=== PATIENT | female | born 1995 | race Hispanic/Latino ===

== ENCOUNTER 2018-09-15 03:35 | Emergency (ER) | payer OTHER ==
[2018-09-15] MEDS ORDERED: ONDANSETRON 4 MG/2 ML VIAL ONE (04:07)
[2018-09-15] MEDS ORDERED: MORPHINE 4 MG/ML SYR ONE (04:07)
[2018-09-15] MEDS ORDERED: NA CHLORIDE 0.9% 1,000 ML ONE (04:08)
[2018-09-15 04:09] LABS: Absolute Lymphocytes (CBC) 2.1 K/uL (0.7-4.9); Absolute Monocytes 0.5 K/uL (0.1-1.3); Absolute Neutrophil 5.5 K/uL (1.8-8.0); Basophils % 0.7 % (0-1.3); Hematocrit 34.2 % (36.0-45.0); Lymphocytes % 24.2 % (15.3-44.8); MCH 28.3 pg (27.0-35.0); MCV 84.7 fL (80-100); RBC Red Blood Cell Count 4.04 M/uL (3.86-4.86)
[2018-09-15 04:28] LABS: ALT/SGPT 34 U/L (12-78); AST/SGOT 22 U/L (15-37); Albumin 2.6 g/dL (3.4-5.0); Alkaline Phosphatase 181 U/L (45-117); BUN Blood Urea Nitrogen 11 mg/dL (7-18); Bicarbonate 23 mmol/L (21-32); Bilirubin Direct < 0.1 mg/dL (0-0.2); Bilirubin Total 0.2 mg/dL (0.2-1.0); Glucose Level 94 mg/dL (74-106); Lipase 134 U/L (73-393); Potassium 4.1 mmol/L (3.5-5.1); Protein, Total 6.8 g/dL (6.4-8.2); Sodium Level 139 mmol/L (136-145)
[2018-09-15 05:02] LABS: Urine Blood 3+ (NEG); Urine Glucose NEGATIVE (NEG); Urine Protein 2+ (NEG)
[2018-09-15 05:26] LABS: Urine Bacteria <20 /HPF (<20); Urine Culture Reflex Order REFLEXED; Urine RBC TNTC /HPF (NONE SEEN)
--- NOTE | 2018-09-15 06:35 | ER ---
Nurse's Notes [facility] Name: Rachel Headley Age: 23 yrs Sex: Female : 1995 Arrival Date: 09/15/2018 Time: 03:37 Bed 8 Private MD: Diagnosis: Abdominal pain. Urinary tract infection Presentation: 09/15 03:46 Presenting complaint: Patient states: she delivered a baby on Sunday and received an bb epidural but then required a blood patch then tonight at approx 0200 she started having sharp lower abdominal pain which has gotten worse is constant and she rates it at 9/10. Pt denies vomiting, diarrhea or urinary symptoms. Transition of care: patient was not received from another setting of care. Onset of symptoms was September 15, 2018. Risk Assessment: Do you want to hurt yourself or someone else? Patient reports no desire to harm self or others. Initial Sepsis Screen: Does the patient meet any 2 criteria? No. Patient's initial sepsis screen is negative. Does the patient have a suspected source of infection? No. Patient's initial sepsis screen is negative. Care prior to arrival: None. 03:46 Method Of Arrival: Ambulatory bb 03:46 Acuity: RAMIRO 2 bb 03:52 Note pt had normal vaginal delivery. 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 - Social history:: Smoking status: Patient/guardian denies using tobacco, Patient/guardian denies using alcohol, street drugs. - Ebola Screening: : No symptoms or risks identified at this time. Screenin:00 Abuse screen: Denies threats or abuse. Denies injuries from another. Nutritional rr5 screening: No deficits noted. Tuberculosis screening: No symptoms or risk factors identified. Fall Risk IV access (20 points). Total Culver Fall Scale indicates No Risk (0-24 pts). Assessment: 03:45 General: Appears in no apparent distress. uncomfortable, Behavior is calm, cooperative, rr5 crying. Pain: Complains of pain in right lower quadrant and left lower quadrant Pain does not radiate. Pain currently is 9 out of 10 on a pain scale. Quality of pain is described as stabbing, Pain began 2 hours ago. Is intermittent. Neuro: Level of Consciousness is awake, alert, obeys commands, Oriented to person, place, time, situation. Cardiovascular: Capillary refill < 3 seconds. Respiratory: Airway is patent. GI: Abdomen is round. : No signs and/or symptoms were reported regarding the genitourinary system. EENT: No signs and/or symptoms were reported regarding the EENT system. Derm: No signs and/or symptoms reported regarding the dermatologic system. Musculoskeletal: No signs and/or symptoms reported regarding the musculoskeletal system. 04:19 Reassessment: Patient states feeling better. Patient states symptoms have improved. rr5 Pain: Complains of pain in right lower quadrant and left lower quadrant Pain does not radiate. Pain currently is 2 out of 10 on a pain scale. Quality of pain is described as stabbing, Pain began 3 hours ago. Is intermittent. 04:30 Reassessment: Patient appears in no apparent distress at this time. Patient is alert, rr5 oriented x 3, equal unlabored respirations, skin warm/dry/pink. oral contrast consumed at 0430 test negative, CT staff rylan informed. Patient states feeling better. Patient states symptoms have improved. 05:56 Reassessment: Patient appears in no apparent distress at this time. Patient and/or rr5 family updated on plan of care and expected duration. Pain level reassessed. Patient is alert, oriented x 3, equal unlabored respirations, skin warm/dry/pink. Patient denies pain at this time. Patient states feeling better. Patient states symptoms have improved. Vital Signs: 03:51 BP 138 / 93; Pulse 64; Resp 18 S; Temp 98.1(O); Pulse Ox 97% on R/A; Weight 106.59 kg bb (R); Height 5 ft. 6 in. (167.64 cm) (R); Pain 9/10; 04:00 BP 125 / 69; Pulse 65; Resp 16; Pulse Ox 99% on R/A; rr5 04:52 BP 128 / 80; Pulse 55; Resp 16; Pulse Ox 99% on R/A; rr5 05:58 BP 140 / 85; Pulse 61; Resp 17; Pulse Ox 99% on R/A; rr5 06:48 BP 123 / 78; Pulse 60; Resp 16; Pulse Ox 99% on R/A; rr5 03:51 Body Mass Index 37.93 (106.59 kg, 167.64 cm) bb ED Course: 03:37 Patient arrived in ED. es 03:40 Clayton Shea MD is Attending Physician. pkl 03:48 Jagdish Isaacs, RN is Primary Nurse. rr5 03:50 Triage completed. bb 03:51 Arm band placed on Patient placed in an exam room, on a stretcher, on pulse oximetry. bb Family accompanied patient. 03:58 Inserted saline lock: 20 gauge in right antecubital area, using aseptic technique. rr5 ,using aseptic technique. inserted koby Jasso RN Blood collected. 04:00 Patient has correct armband on for positive identification. Bed in low position. Call rr5 light in reach. Side rails up X 1. 05:[address] via stretcher. kw1 05:[address] rr5 05:38 CT Abd/Pelvis - W/Contrast In Process Unspecified. EDMS 05:38 CT completed. Patient tolerated procedure well. Patient moved back from CT. kw1 05:49 Patient moved back from CT. rr5 06:44 No provider procedures requiring assistance completed. IV discontinued, No lp1 redness/swelling at site. Pressure dressing applied. Administered Medications: 04:05 Drug: Zofran 4 mg Route: IVP; Site: right antecubital; rr5 05:49 Follow up: Response: No adverse reaction rr5 04:09 Drug: NS 0.9% 1000 ml Route: IV; Rate: 1000 ml; Site: right antecubital; rr5 06:50 Follow up: Response: No adverse reaction; IV Status: Completed infusion rr5 04:09 Drug: morphine 4 mg Route: IVP; Site: right antecubital; rr5 05:49 Follow up: Response: No adverse reaction rr5 06:43 Drug: Cipro 500 mg Route: PO; lp1 06:50 Follow up: Response: Medication administered at discharge. rr5 Outcome: 06:34 Discharge ordered by . pkl 06:48 Discharged to home ambulatory, with family. rr5 06:48 Condition: stable 06:48 Discharge instructions given to patient, family, Instructed on discharge instructions, follow up and referral plans. medication usage, Demonstrated understanding of instructions, follow-up care, medications, Prescriptions given X 2. 06:49 Patient left the ED. rr5 Signatures: Dispatcher [employer] Clayton Cain MD MD pkl Salyer, Edna es Ballard, Brenda, RN RN bb Louisa Bone RN RN lp1 Elaine Corea [facility] Jagdish Isaacs RN RN rr5 Corrections: (The following items were deleted from the chart) 03:59 03:45 Pain: Complains of pain in right lower quadrant and left lower quadrant Pain does rr5 not radiate. Pain currently is 9 out of 10 on a pain scale. Quality of pain is described as aching, Pain began gradually, Is intermittent, rr5
--- NOTE | 2018-09-15 06:35 | EDPHYS ---
Physician Documentation [facility] Name: Rachel Headley Age: 23 yrs Sex: Female : 1995 Arrival Date: 09/15/2018 Time: 03:37 Bed 8 Private MD: ED Physician Clayton Shea HPI: 09/15 04:04 This 23 yrs old Female presents to ER via Ambulatory with complaints of pkl Delivered baby sunday night now in lot of pain. 04:04 The patient presents with abdominal pain in the lower abdomen. Onset: The pkl symptoms/episode began/occurred just prior to arrival, 2 hour(s) ago. The symptoms do not radiate. Associated signs and symptoms: none. S/P vaginal delivery 5 days at [facility]. 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 - Social history:: Smoking status: Patient/guardian denies using tobacco, Patient/guardian denies using alcohol, street drugs. - Ebola Screening: : No symptoms or risks identified at this time. ROS: 04:04 Eyes: Negative for injury, pain, redness, and discharge, ENT: Negative for injury, pkl pain, and discharge, Neck: Negative for injury, pain, and swelling, Cardiovascular: Negative for chest pain, palpitations, and edema, Respiratory: Negative for shortness of breath, cough, wheezing, and pleuritic chest pain. 04:04 Abdomen/GI: Positive for abdominal pain, of the right lower quadrant and left lower quadrant. 04:04 Back: Negative for acute changes. 04:04 : Negative for urinary symptoms. 04:04 MS/extremity: Negative for acute changes. 04:04 Skin: Negative for rash. 04:04 Neuro: Negative for altered mental status. Exam: 04:04 Head/Face: Normocephalic, atraumatic. Eyes: Pupils equal round and reactive to light, pkl extra-ocular motions intact. Lids and lashes normal. Conjunctiva and sclera are non-icteric and not injected. Cornea within normal limits. Periorbital areas with no swelling, redness, or edema. ENT: Nares patent. No nasal discharge, no septal abnormalities noted. Tympanic membranes are normal and external auditory canals are clear. Oropharynx with no redness, swelling, or masses, exudates, or evidence of obstruction, uvula midline. Mucous membranes moist. Neck: Trachea midline, no thyromegaly or masses palpated, and no cervical lymphadenopathy. Supple, full range of motion without nuchal rigidity, or vertebral point tenderness. No Meningismus. Chest/axilla: Normal chest wall appearance and motion. Nontender with no deformity. No lesions are appreciated. Cardiovascular: Regular rate and rhythm with a normal S1 and S2. No gallops, murmurs, or rubs. Normal PMI, no JVD. No pulse deficits. Respiratory: Lungs have equal breath sounds bilaterally, clear to auscultation and percussion. No rales, rhonchi or wheezes noted. No increased work of breathing, no retractions or nasal flaring. 04:04 Abdomen/GI: Bowel sounds: normal, Palpation: soft, mild abdominal tenderness, in the right lower quadrant and left lower quadrant. 04:04 Back: Exam negative for acute changes. 04:04 Musculoskeletal/extremity: Exam is negative for acute changes. 04:04 Skin: Exam negative for rash. 04:04 Neuro: Orientation: is normal, Mentation: is normal, Cranial nerves: grossly normal, Motor: is normal. Vital Signs: 03:51 BP 138 / 93; Pulse 64; Resp 18 S; Temp 98.1(O); Pulse Ox 97% on R/A; Weight 106.59 kg bb (R); Height 5 ft. 6 in. (167.64 cm) (R); Pain 9/10; 04:00 BP 125 / 69; Pulse 65; Resp 16; Pulse Ox 99% on R/A; rr5 04:52 BP 128 / 80; Pulse 55; Resp 16; Pulse Ox 99% on R/A; rr5 05:58 BP 140 / 85; Pulse 61; Resp 17; Pulse Ox 99% on R/A; rr5 06:48 BP 123 / 78; Pulse 60; Resp 16; Pulse Ox 99% on R/A; rr5 03:51 Body Mass Index 37.93 (106.59 kg, 167.64 cm) MDM: 03:40 Patient medically screened. pkl 06:33 Data reviewed: vital signs, nurses notes, lab test result(s), radiologic studies, CT pkl scan. 09/15 03:57 Order name: Basic Metabolic Panel; Complete Time: 04:29 pkl 09/15 03:57 Order name: CBC with Diff; Complete Time: 04:17 pkl 09/15 03:57 Order name: Creatinine for Radiology; Complete Time: 04:29 pkl 09/15 03:57 Order name: Hepatic Function; Complete Time: 04:29 pkl 09/15 03:57 Order name: Lipase; Complete Time: 04:29 pkl 09/15 03:57 Order name: CT Abd/Pelvis - W/Contrast pkl 09/15 04:50 Order name: Urine Microscopic Only; Complete Time: 06:15 lp1 09/15 04:50 Order name: Urine Dipstick--Ancillary (enter results); Complete Time: 05:22 mw2 09/15 04:50 Order name: Urine --Ancillary (enter results); Complete Time: 05:22 mw2 09/15 05:28 Order name: Urine Culture [facility] 09/15 03:57 Order name: IV Saline Lock; Complete Time: 04:00 pkl 09/15 03:57 Order name: Labs collected and sent; Complete Time: 04:00 pkl Administered Medications: 04:05 Drug: Zofran 4 mg Route: IVP; Site: right antecubital; rr5 05:49 Follow up: Response: No adverse reaction rr5 04:09 Drug: NS 0.9% 1000 ml Route: IV; Rate: 1000 ml; Site: right antecubital; rr5 06:50 Follow up: Response: No adverse reaction; IV Status: Completed infusion rr5 04:09 Drug: morphine 4 mg Route: IVP; Site: right antecubital; rr5 05:49 Follow up: Response: No adverse reaction rr5 06:43 Drug: Cipro 500 mg Route: PO; lp1 06:50 Follow up: Response: Medication administered at discharge. rr5 Disposition: 09/15/18 06:34 Discharged to Home. Impression: Abdominal pain. Urinary tract infection. - Condition is Stable. - Prescriptions for Ultram 50 mg Oral Tablet - take 1 tablet by ORAL route every 8 hours As needed; 20 tablet. Cipro 500 mg Oral Tablet - take 1 tablet by ORAL route every 12 hours for 7 days; 14 tablet. - Medication Reconciliation Form, Thank You Letter, Antibiotic Education, Prescription Opioid Use form. - Follow up: Private Physician; When: 2 - 3 days; Reason: Re-evaluation by your physician. - Problem is new. - Symptoms have improved. Signatures: Dispatcher [employer] [facility] Clayton Shea MD MD pkl Lucrecia Daniel, RN RN bb Louisa Bone RN RN lp1 Jagdish Isaacs RN RN rr5 Corrections: (The following items were deleted from the chart) 04:57 04:19 URINALYSIS+U.LAB.BRZ ordered. [facility] 06:49 06:34 09/15/2018 06:34 Discharged to Home. Impression: Abdominal pain. Urinary tract rr5 infection. Condition is Stable. Forms are Medication Reconciliation Form, Thank You Letter, Antibiotic Education, Prescription Opioid Use. Follow up: Private Physician; When: 2 - 3 days; Reason: Re-evaluation by your physician. Problem is new. Symptoms have improved. pkl
[2018-09-15] MEDS ORDERED: CIPROFLOXACIN HCL 500 MG TAB ONE (06:48)
--- NOTE | 2018-09-15 09:11 | RAD REPORT ---
EXAM DESCRIPTION: CT - Abdomen Pelvis W Contrast - 09/15/2018 6:55 am CLINICAL HISTORY: Acute onset abdominal pain, history of recent delivery, epidural at time of delive ry and subsequent blood patch A preliminary report was provided at the time of the study and reviewed prior to final report. COMPARISON: CT study May 2015 TECHNIQUE: Biphasic, helical CT imaging of the abdomen and pelvis was performed following 100 ml non -ionic IV contrast. Oral contrast was given. All CT scans are performed using dose optimization technique as appropriate and may include automated exposure control or mA/KV adjustment according to patient size. FINDINGS: Minimal right pleural effusion is present with trace amounts of atelectasis. No acute lung base finding. There is no cardiomegaly, pericardial effusion or pericardial thickening present. The liver, gallbladder or and pancreas show no suspicious findings. Spleen is 15 cm in maximum dimens ion. This is increased slightly from 2014. This is nonspecific. No focal splenic lesion. Symmetric renal function is seen with no hydronephrosis or suspicious renal mass. No pyelonephritis o r acute renal parenchymal process. Partial filled bladder shows no acute findings. Enlarged uterus is present not unexpected for recent delivery. There is no air within the endometrial cavity. Endometrial heterogeneity is probably some remnant hemorrhagic material also common postpart um. No primary ovarian process. Ovaries are not well defined due to surrounding on opacified bowel. No dilated bowel loops or bowel wall thickening. Appendix is identified and normal. No free air or pn eumatosis. Minimal amount of free fluid is present believed to be physiologic related to delivery. Mi nimal congestion in the pelvis also believed to be a normal finding. No hernia, mass or b ulky lymphadenopathy. No adrenal abnormality. No suspicious bony findings. IMPRESSION: No surgically emergent finding identifiable. No acute bowel finding seen. A nonspecific enteritis is possible. The appendix is normal. Enlarged uterus, minimal peritoneal fluid and mild pelvic congestion all expected for recent delivery .
== END 2018-09-15 06:49 | disposition home or self-care (01) ==
LOC: ER 03:35
DX: N39.0 Urinary tract infection, site not specified (principal)
CPT/HCPCS: 36415; 74177; 80048; 80076; 81003; 81015; 81025; 83690; 85025; 87086; 87088; 96361; 96374; 96375; 99284; J2405; J7030; Q9967

== ENCOUNTER 2019-01-19 20:15 | Emergency (ER) | payer OTHER, SELFPAY ==
--- OUTSIDE RECORDS SUMMARY | 2019-01-19 20:17 | XMS REPORT ---
:1995 [facility] Address [address] [place] [address] Care Team Providers Name Role Phone Unavailable Unavailable Unavailable Problems This patient has no known problems. Allergies, Adverse Reactions, Alerts This patient has no known allergies or adverse reactions. Medications This patient has no known medications.
--- NOTE | 2019-01-19 22:43 | EDPHYS ---
Physician Documentation [facility] Name: Rachel Headley Age: 23 yrs Sex: Female : 1995 Arrival Date: 01/19/2019 Time: 20:19 Bed 13 Private MD: ED Physician Reji Parish HPI: 01/19 22:39 This 23 yrs old Female presents to ER via Ambulatory with complaints of jr8 STEPPED ON NAIL. 22:39 The patient presents with pain, a puncture wound, from a nail. The complaints affect jr8 the right foot. Onset: The symptoms/episode began/occurred acutely, today. Modifying factors: The symptoms are alleviated by nothing, the symptoms are aggravated by weight bearing. Associated signs and symptoms: The patient has no apparent associated signs or symptoms. Severity of symptoms: At their worst the symptoms were mild, in the emergency department the symptoms are unchanged. The patient has not experienced similar symptoms in the past. The patient has not recently seen a physician. Stated that she was walking outside and stepped on charisse nail. Nail did not go into foot all the way per patient. Was able to come off of the nail easily. Had gone through her sandal. Nail intact when she examined it . 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 - Social history:: Smoking status: Patient/guardian denies using tobacco. - Ebola Screening: : No symptoms or risks identified at this time. ROS: 22:39 Constitutional: Negative for fever, chills, and weight loss. jr8 22:39 MS/extremity: Positive for pain, puncture, of the right foot. 22:39 All other systems are negative. Exam: 22:39 Constitutional: This is a well developed, well nourished patient who is awake, alert, jr8 and in no acute distress. Cardiovascular: Regular rate and rhythm with a normal S1 and S2. No gallops, murmurs, or rubs. Normal PMI, no JVD. No pulse deficits. Respiratory: Lungs have equal breath sounds bilaterally, clear to auscultation and percussion. No rales, rhonchi or wheezes noted. No increased work of breathing, no retractions or nasal flaring. Skin: Warm, dry with normal turgor. Normal color with no rashes, no lesions, and no evidence of cellulitis. Neuro: Awake and alert, GCS 15, oriented to person, place, time, and situation. Cranial nerves II-XII grossly intact. Motor strength 5/5 in all extremities. Sensory grossly intact. Cerebellar exam normal. Normal gait. 22:39 Musculoskeletal/extremity: Extremities: grossly normal except: noted in the right foot: pain, puncture, right forefoot. No FB felt or seen , ROM: intact in all extremities, Circulation is intact in all extremities. Sensation intact. Vital Signs: 20:37 BP 133 / 62; Pulse 82; Resp 16; Temp 98.5(TE); Pulse Ox 100% on R/A; Weight 95.25 kg ak1 (R); Height 5 ft. 5 in. (165.10 cm) (R); Pain 6/10; 22:03 BP 124 / 63; Pulse 84; Resp 17; Pulse Ox 98% on R/A; mt 20:37 Body Mass Index 34.95 (95.25 kg, 165.10 cm) ak1 MDM: 22:24 Patient medically screened. [facility] 22:39 Data reviewed: vital signs, nurses notes, and as a result, I will discharge patient. [facility] Data interpreted: Pulse oximetry: on room air is 98 %. Interpretation: normal. Counseling: I had a detailed discussion with the patient and/or guardian regarding: the historical points, exam findings, and any diagnostic results supporting the discharge/admit diagnosis, the need for outpatient follow up, a family practitioner, to return to the emergency department if symptoms worsen or persist or if there are any questions or concerns that arise at home. 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 Exp: jb4 12/26/2020. Lot #: [id number]. } Route: IM; Site: right deltoid; 22:50 Follow up: Response: No adverse reaction; Medication administered at discharge. jb4 Disposition: 01/20 06:09 Co-signature as Attending Physician, Reji Parish MD I agree with the assessment and tw4 plan of care. Disposition: 01/19/19 22:42 Discharged to Home. Impression: Puncture wound without foreign body, right foot. - Condition is Stable. - Discharge Instructions: Puncture Wound. - Prescriptions for Cipro 500 mg Oral Tablet - take 1 tablet by ORAL route every 12 hours for 10 days; 20 tablet. - Medication Reconciliation Form, Thank You Letter, Antibiotic Education, Prescription Opioid Use form. - Follow up: Private Physician; When: 2 - 3 days; Reason: Recheck today's complaints, Continuance of care, Re-evaluation by your physician. - Problem is new. - Symptoms have improved. Signatures: Rik Daigle PA PA jr8 Su Harvey RN RN ak1 Daniel Martin RN RN jb4 Reji Parish MD MD tw4 Corrections: (The following items were deleted from the chart) 01/19 23:07 22:42 01/19/2019 22:42 Discharged to Home. Impression: Puncture wound without foreign jb4 body, right foot. Condition is Stable. Forms are Medication Reconciliation Form, Thank You Letter, Antibiotic Education, Prescription Opioid Use. Follow up: Private Physician; When: 2 - 3 days; Reason: Recheck today's complaints, Continuance of care, Re-evaluation by your physician. Problem is new. Symptoms have improved. jr8
--- NOTE | 2019-01-19 22:43 | ER ---
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 PT C/O ak1 BURNING PAIN TO RIGHT FOOT UP TO RIGHT KNEE. Transition of care: patient was not received from another setting of care. Onset of symptoms was January 19, 2019. Risk Assessment: Do you want to hurt yourself or someone else? Patient reports no desire to harm self or others. Care prior to arrival: None. 20:36 Method Of Arrival: Ambulatory ak1 20:36 Acuity: RAMIRO 4 ak1 Triage Assessment: 20:37 General: Appears in no apparent distress. Behavior is calm, cooperative. Pain: ak1 Complains of pain in right foot. 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 - Social history:: Smoking status: Patient/guardian denies using tobacco. - Ebola Screening: : No symptoms or risks identified at this time. Screenin:01 Abuse screen: Denies threats or abuse. Nutritional screening: No deficits noted. jb4 Tuberculosis screening: No symptoms or risk factors identified. Fall Risk None identified. Assessment: 22:01 General: Appears in no apparent distress. uncomfortable, Behavior is calm, cooperative, jb4 appropriate for age. Pain: Complains of pain in right foot Pain does not radiate. Pain currently is 8 out of 10 on a pain scale. Quality of pain is described as burning, Pain began 2 hours ago. Neuro: Level of Consciousness is awake, alert, obeys commands, Oriented to person, place, time, situation. Cardiovascular: Patient's skin is warm and dry. Respiratory: Airway is patent Respiratory effort is even, unlabored, Respiratory pattern is regular, symmetrical. GI: No signs and/or symptoms were reported involving the gastrointestinal system. : No signs and/or symptoms were reported regarding the genitourinary system. EENT: No signs and/or symptoms were reported regarding the EENT system. Derm: Skin is intact, Skin is pink, warm \T\ dry. Musculoskeletal: Circulation, motion, and sensation intact. Vital Signs: 20:37 BP 133 / 62; Pulse 82; Resp 16; Temp 98.5(TE); Pulse Ox 100% on R/A; Weight 95.25 kg ak1 (R); Height 5 ft. 5 in. (165.10 cm) (R); Pain 6/10; 22:03 BP 124 / 63; Pulse 84; Resp 17; Pulse Ox 98% on R/A; mt 20:37 Body Mass Index 34.95 (95.25 kg, 165.10 cm) ak1 ED Course: 20:19 Patient arrived in ED. es 20:37 Triage completed. ak1 20:37 Arm band placed on Patient placed in waiting room, Patient notified of wait time. ak1 22:01 Rik Daigle PA is PHCP. jr8 22:01 Reji Parish MD is Attending Physician. jr8 22:01 Patient has correct armband on for positive identification. Bed in low position. Call jb4 light in reach. Side rails up X 1. Pulse ox on. NIBP on. 22:49 Daniel Martin, CHARLI is Primary Nurse. jb4 22:49 No provider procedures requiring assistance completed. Patient did not have IV access jb4 during this emergency room visit. 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 Exp: jb4 12/26/2020. Lot #: [id number]. } Route: IM; Site: right deltoid; 22:50 Follow up: Response: No adverse reaction; Medication administered at discharge. jb4 Outcome: 22:42 Discharge ordered by . jr8 22:49 Discharged to home ambulatory. jb4 22:49 Condition: stable 22:49 Discharge instructions given to patient, Instructed on discharge instructions, follow up and referral plans. medication usage, Demonstrated understanding of instructions, follow-up care, medications, Prescriptions given X 1. 23:07 Patient left the ED. jb4 Signatures: Denise Daley Josh, PA PA jr8 Su Harvey, RN RN ak1 Dainel Martin RN RN jb4 Thalia Humphrey wa
[2019-01-19] MEDS ORDERED: TETANUS & DIPHTHERIA TOX,ADULT 0.5 ML VIAL ONE (23:02)
== END 2019-01-19 23:07 | disposition home or self-care (01) ==
LOC: ER 20:15
DX: S91.331A Puncture wound without foreign body, right foot, initial encounter (principal); W45.0XXA Nail entering through skin, initial encounter; Y93.01 Activity, walking, marching and hiking; Y92.89 Other specified places as the place of occurrence of the external cause; Z23 Encounter for immunization
CPT/HCPCS: 90714; 99283

== ENCOUNTER 2023-08-27 19:22 | Emergency (ER) | payer SELFPAY ==
--- OUTSIDE RECORDS SUMMARY | 2023-08-27 19:25 | XMS REPORT | Continuity of Care Document ---
:1995 Author Organization [facility] t Address [address] [place] [address] [place] [id number] Care Team Providers Name Role Phone PCP, PATIENT DOES NOT HAVE A Primary Care Physician UnavailNeal Walls MD Attending Clinician NEAL FULLER Attending Clinician Unavailable TERRELL BLAIR Attending Clinician Unavailable Terrell Blair MD Attending Clinician JUN RAY Attending Clinician Unavailable Jun Ray NP Attending Clinician NEAL FULLER Admitting Clinician Unavailable Payers Payer Name Policy Type Policy Number Effective Date Expiration Date S ource MEDICAID [place] [id number] 2022 00:00:00 Problems Condition Condition Condition Status Onset Resolution Last Treating Co mments Source Name Details Category Date Date Treatment Clinician Date BMI BMI Disease Active 2017-11 Univers 37.0-37.9, 37.0-37.9, 2-27 it y of adult adult 00:00: [address] Need for Need for Disease Active 2017-11 Unive rs MMR MMR 2- ity of vaccine vaccine 00:00: [place] 00 Medical Branch Laceration Laceration Disease Active 2017-11 U nivers , , 0-30 ity of obstetric[place] obstetrica [place] l,minor l,minor 00 Medical Branch Elevated Elevated Disease Active 2017-11 Unive rs blood blood 0-09 ity of pressure pressure 00:00: [place] reading reading 00 Medical without without Branch diagnosis diagnosis of of hypertensi hypertensi on on Rubella Rubella Disease Active Overview: Univ ers Equivocal Equivocal 03-25 Formattin i ty of status, status, 00:00: g of this [place] antepartum antepartum 00 note Me dical might be Branch different from the original. Address pp Multiparit Multiparit Disease Active U nivers y y 5 ity of 00:00: [place] 00 [facility] Allergies, Adverse Reactions, Alerts Allergy Allergy Status Severity Reaction(s) Onset Inactive Treating Comm ents Source Name Type Date Date Clinician NO KNOWN Drug Active Univers ALLERGIE Class ity of S [facility] Social History Social Habit Start Date Stop Date Quantity Comments Source Gender identity Universit y of [facility] Alcohol intake 2023-07-20 2023-07-20 0 /d University of 00:00:00 00:00:00 [facility] Exposure to 2022-08-25 2022-09-04 Not sure [facility] SARS-CoV-2 (event) 00:00:00 18:27:00 [facility] History of Social 2019-05-22 2019-05-22 Univers ity of function 00:00:00 00:00:00 [facility] Tobacco use and 2016-06-06 2016-06-06 Smokeless Universit y of exposure 00:00:00 00:00:00 tobacco non-user [facility] dical Branch Sex Assigned At [birth year] Universit y of 00:00:00 00:00:00 [facility] Smoking Status Start Date Stop Date Source Never smoked tobacco [facility] Medications Ordered Filled Start Stop Current Ordering Indication Dosage Frequency Signature Comments Components Source Medication Medication Date Date Medication? Clinician (SIG) Name Name ibuprofen 2022- No 800mg 800 mg, Uni vers (IBU) 07-21 Oral, ity of tablet 800 01:30: 01:45 ONCE, 1 Gigi as mg 00 :00 dose, On Medical 07/20/23 Branch at 2030, JENNIFER amoxicillin 2021-11 Yes [id number] 500mg Take 1 Univers 500 mg 0-24 capsule by ity of capsule 00:00: mouth in [place] 00 the Medical morning Branch and 1 capsule at noon and 1 capsule in the evening. neomycin-po 2021-11 [address] [id number] 3[drp] Place 3 Univers lymyxin-hyd 0-24 Drops in ity of rocortisone 00:00: right ear [place] otic 00 4 (four) Medical solution times Branch daily. benzonatate 2021-11 Yes [id number] 100mg Take 1 Univers 100 mg 0-24 capsule by ity of capsule 00:00: mouth 3 [place] 00 (three) Medical times [place] daily as needed for Cough. amoxicillin 2021-11 Yes [id number] 500mg Take 1 Univers 500 mg 0-24 capsule by ity of capsule 00:00: mouth in [place] 00 the Medical morning Branch and 1 capsule at noon and 1 capsule in the evening. neomycin-po 2021-11 Yes [id number] 3[drp] Place 3 Univers lymyxin-hyd 0-24 Drops in ity of rocortisone 00:00: right ear [place] otic 00 4 (four) Medical solution times Branch daily. benzonatate 2021-11 Yes [id number] 100mg Take 1 Univers 100 mg 0-24 capsule by ity of capsule 00:00: mouth 3 [place] 00 (three) Medical times Branch daily as needed for Cough. naproxen 2021-11- No [id number] 500mg Take 1 Un srinivasan 500 mg 0-24 -04 tablet by ity of tablet 00:00: 04:59 mouth in [place] 00 :00 the Medical morning Branch and 1 tablet in the evening. Take with meals. Do all this for 10 days. dexamethaso 2021- No 10mg 10 mg, Uni vers ne 06-25 08-14 Intramuscu ity of (DECADRON 02:00: 01:00 lar, ONCE, [place] PHOSPHATE) 00 :00 1 dose, On Med ical injection Sat Branch 10 mg 06/24/22 at 2100, Routine amoxicillin 2021- No [id number] 500mg Take 1 Univers 500 mg 06-24 08-24 tablet by ity of tablet 00:00: 04:59 mouth in [place] 00 :00 the Medical morning Branch and 1 tablet at noon and 1 tablet in the evening. Do all this for 10 days. norgestimat 2017-11 Yes [id number] 1{tbl} Take 1 Univers e-ethinyl 2-27 tablet by ity o f estradiol 00:00: mouth [place] (ORTHO 00 daily. Medical TRI-CYCLEN Branch , 28,) 0.18/0.215/ 0.25 mg-25 mcg tablet norgestimat 2017-11 Yes [id number] 1{tbl} Take 1 Univers e-ethinyl 2-27 tablet by ity o f estradiol 00:00: mouth [place] (ORTHO 00 daily. Medical TRI-CYCLEN Branch , 28,) 0.18/0.215/ 0.25 mg-25 mcg tablet norgestimat 2017-11 Yes [id number] 1{tbl} Take 1 Univers e-ethinyl 2-27 tablet by ity o f estradiol 00:00: mouth [place] (ORTHO 00 daily. Medical TRI-CYCLEN Branch , 28,) 0.18/0.215/ 0.25 mg-25 mcg tablet ibuprofen 2017-11 Yes 600mg Take 1 Unive rs 600 mg 0-30 tablet by ity of tablet 00:00: mouth [place] 00 every 6 Medical (six) Branch hours as needed for Pain (scale 1-3) or Pain (scale 4-6) (Pain). Take with food or milk. ibuprofen 2017-11 Yes 600mg Take 1 Unive rs 600 mg 0-30 tablet by ity of tablet 00:00: mouth [place] 00 every 6 Medical (six) Branch hours as needed for Pain (scale 1-3) or Pain (scale 4-6) (Pain). Take with food or milk. ibuprofen 2017-11 Yes 600mg Take 1 Unive rs 600 mg 0-30 tablet by ity of tablet 00:00: mouth [place] 00 every 6 Medical (six) Branch hours as needed for Pain (scale 1-3) or Pain (scale 4-6) (Pain). Take with food or milk. Vital Signs Vital Name Observation Time Observation Value Comments Source Body weight 2023-07-21 00:46:00 104.327 kg [facility] BMI 2023-07-21 00:46:00 36.02 kg/m2 Universi ty of [place] [facility] Oxygen saturation in 2023-07-21 00:46:00 100 /min University of Arterial blood by [facility] Pulse oximetry Branch Systolic blood 2023-07-21 00:46:00 128 mm[Hg] Univer sity of pressure [place] [facility] Diastolic blood 2023-07-21 00:46:00 56 mm[Hg] Unive rsity of pressure [place] [facility] Heart rate 2023-07-21 00:46:00 72 /min Universi ty [facility] [place] [facility] Body temperature 2023-07-21 00:46:00 37 Diane Univ ersity of [place] [facility] Respiratory rate 2023-07-21 00:46:00 16 /min Univ ersity of [place] [facility] Body height 2023-07-21 00:46:00 170.2 cm Universi ty of [place] [facility] Systolic blood 2022-09-04 23:28:00 136 mm[Hg] Univer sity of pressure [place] [facility] Diastolic blood 2022-09-04 23:28:00 78 mm[Hg] Unive rsity of pressure [place] [facility] Heart rate 2022-09-04 23:28:00 81 /min Universi ty of [place] [facility] Body temperature 2022-09-04 23:28:00 36.89 Diane Univ [facility] [place] [facility] Respiratory rate 2022-09-04 23:28:00 16 /min Univ ers[facility] [place] [facility] Body height 2022-09-04 23:28:00 167.6 cm [facility]i ty [facility] [place] [facility] Body weight 2022-09-04 23:28:00 106.142 kg [facility] [place] [facility] BMI 2022-09-04 23:28:00 37.77 kg/m2 Universi ty [facility] [place] [facility] Oxygen saturation in 2022-09-04 23:28:00 100 /min University of Arterial blood by [facility] Pulse oximetry Branch Systolic blood 2022-06-25 00:44:00 134 mm[Hg] Univer sity of pressure [place] [facility] Diastolic blood 2022-06-25 00:44:00 81 mm[Hg] Unive rsity of pressure [place] [facility] Heart rate 2022-06-25 00:44:00 79 /min Universi ty [facility] [place] [facility] Body temperature 2022-06-25 00:44:00 36.33 Diane [facility] Respiratory rate 2022-06-25 00:44:00 18 /min [facility] Body height 2022-06-25 00:44:00 165.1 cm [facility] Body weight 2022-06-25 00:44:00 109.362 kg [facility] BMI 2022-06-25 00:44:00 40.12 kg/m2 [facility] Oxygen saturation in 2022-06-25 00:44:00 100 /min [facility] Arterial blood by [facility] Pulse oximetry Branch Procedures Procedure Date / Time Performed Performing Clinician [facility] e ASSIGNMENT OF BENEFITS 2023-07-21 02:11:37 Doctor Unassigned, No [facility] POCT TEST 2023-07-21 01:23:00 Neal Fuller ity [facility] CONSENT/REFUSAL FOR 2023-07-21 00:23:09 Doctor Unassigned, No Un i[facility]ity of [place] DIAGNOSIS AND Name Medical Branch TREATMENT NOTICE OF PRIVACY 2023-07-21 00:22:40 Doctor Unassigned, No [facility] NOTICE OF PRIVACY 2022-09-04 23:19:33 Doctor Unassigned, No [facility] Name Medical Branch CONSENT/REFUSAL FOR 2022-09-04 23:18:32 Doctor Unassigned, No Un [facility] [place] DIAGNOSIS AND Name Medical Branch TREATMENT NOTICE OF PRIVACY 2022-06-25 00:40:22 Doctor Unassigned, No [facility] CONSENT/REFUSAL FOR 2022-06-25 00:39:57 Doctor Unassigned, No Un [facility] [place] DIAGNOSIS AND Name Medical Branch TREATMENT Encounters Start End Encounter Admission Attending Care Care Encounter Source Date/Time Date/Time Type Type Clinicians Facility Department ID 2022-09-05 Emergency X [facility] [id number] Univers 05:19:58 ity of [facility] 2023-07-20 2023-07-20 Emergency BRENNA Fuller [id number] [facility] 19:53:00 21:17:00 Neal [facility] [id number] [facility] [id number] [facility] [id number] [address] 2023-07-20 2023-07-20 [facility] [id number] Univers 19:53:00 21:17:00 NEAL covington [facility] 2022-09-04 2022-09-04 Emergency X [facility] ERT [id number] Univers 18:29:00 19:11:00 [facility] 2022-09-04 2022-09-04 Emergency [facility] [id number] Univers 18:29:00 19:11:00 Terrell PAINTING [id number] i ty [facility] [id number] [facility] [id number] [address] 2022-06-24 2022-06-24 [facility] [id number] Univers 19:47:00 20:12:00 [facility] 2022-06-24 2022-06-[address] [facility] ([place] [place] [id number] Univers 19:47:00 20:12:00 Jun PAINTING [id number] [facility] [id number] [facility] [id number] [address] Results Test Description Test Time Test Comments Results Result Comments Source POCT TEST 2023-07-21 01:23:00 Test Item Value Reference Range Interpretation Comme nts POCT PREG (test code = 1605) Negative On board controls acceptable with C Line (test code = 3574) Yes POCT PREG LOT # (test code = 3575) [id number] POCT PREG TEST DATE (test code = 3576) 11/14/2024 Lab Interpretation (test code = 04798-9) Normal [facility]
[2023-08-27 21:12] LABS: Specific Gravity 1.007 (1.005-1.030); Urine Bacteria <20 /HPF (<20); Urine Bilirubin NEGATIVE (Negative); Urine Blood Trace (Negative); Urine Clarity Turbid (Clear); Urine Color Colorless (Yellow); Urine Crystals Unidentified Few /HPF (None Seen); Urine Glucose NEGATIVE (Negative); Urine Protein NEGATIVE (Negative); Urine RBC <5 /HPF (None Seen); Urine Urobilinogen Normal (Normal)
[2023-08-27 21:37] LABS: Specific Gravity 1.007 (1.005-1.030)
--- NOTE | 2023-08-27 21:40 | EDPHYS ---
Physician Documentation [facility] Name: Rachel Headley Age: 28 yrs Sex: Female : 1995 Arrival Date: 08/27/2023 Time: 19:22 Bed 9 Private MD: ED Physician Eduardo Brody HPI: 08/27 21:11 This 28 yrs old Female presents to ER via Ambulatory with complaints of Pelvic ms3 Pain. 21:11 28-year-old female with no past medical problems presents for pelvic pain that has been ms3 ongoing for 1 week. Patient states the pain is worse with urination. Patient rates pain a 9/10 and describes it as burning/sharp. Patient endorses frequency, chills, and dysuria. Patient denies urinary urgency or fever. Patient states his symptoms are similar to when she has previously had urinary tract infections.. Historical: - Allergies: 19:44 No Known Allergies; nj1 - PMHx: 19:44 None; nj1 - PSHx: 19:44 None; nj1 - Immunization history:: Client reports having NOT received the Covid vaccine. - Social history:: Smoking status: Patient denies any tobacco usage or history of. ROS: 21:11 Positive for urinary frequency, burning with urination, ms3 21:11 Cardiovascular: Negative for chest pain, and palpitations. Respiratory: Negative for shortness of breath, cough, wheezing, and pleuritic chest pain, Abdomen/GI: Negative for abdominal pain, nausea, vomiting, diarrhea, and constipation, MS/Extremity: Negative for injury and deformity, Skin: Negative for injury, rash, and discoloration, 21:11 Constitutional: Positive for chills, Exam: 21:11 Constitutional: This is a well developed, well nourished patient who is awake, alert, ms3 and in no acute distress. Head/Face: Normocephalic, atraumatic. Neck: Trachea midline, no cervical lymphadenopathy. Supple, full range of motion without nuchal rigidity, or vertebral point tenderness. No Meningismus. Chest/axilla: Normal chest wall appearance and motion. Nontender with no deformity. Cardiovascular: Regular rate and rhythm with a normal S1 and S2. No gallops, murmurs, or rubs. Normal PMI, no JVD. No pulse deficits. Respiratory: Lungs have equal breath sounds bilaterally, clear to auscultation and percussion. No rales, rhonchi or wheezes noted. No increased work of breathing, no retractions or nasal flaring. Abdomen/GI: Soft, non-tender, with normal bowel sounds. No distension or tympany. No guarding or rebound. No evidence of tenderness throughout. Skin: Warm, dry with normal turgor. Normal color with no rashes, no lesions, and no evidence of cellulitis. MS/ Extremity: Pulses equal, no cyanosis. Neurovascular intact. Full, normal range of motion. Neuro: Awake and alert, GCS 15, oriented to person, place, time, and situation. Cranial nerves II-XII grossly intact. Motor strength 5/5 in all extremities. Sensory grossly intact. Cerebellar exam normal. Normal gait. Vital Signs: 19:41 BP 122 / 63; Pulse 69; Resp 16; Temp 98.2(O); Pulse Ox 100% ; Weight 106.14 kg; Height nj1 5 ft. 6 in. ; Pain 9/10; 19:41 Body Mass Index 37.77 (106.14 kg, 167.64 cm) nj1 19:41 Pain Scale: Adult nj1 MDM: 20:16 Patient medically screened. ms3 21:11 Differential diagnosis: ectopic , nonspecific abdominal pain, urinary tract ms3 infection. 21:32 Data reviewed: vital signs, nurses notes, and as a result, I will discharge patient. I ms3 considered the following discharge prescriptions or medication management in the emergency department Medications were administered in the Emergency Department. See MAR. Counseling: I had a detailed discussion with the patient and/or guardian regarding the historical points, exam findings, and any diagnostic results supporting the discharge/admit diagnosis, lab results, the need for outpatient follow up, to return to the emergency department if symptoms worsen or persist or if there are any questions or concerns that arise at home. Special discussion: I discussed with the patient/guardian in detail that at this point there is no indication for admission to the hospital. It is understood, however, that if the symptoms persist or worsen the patient needs to return immediately for re-evaluation. ED course: Discussed urinalysis results with patient. Patient to follow-up with primary care physician in 2 to 3 days. Patient stands agrees with plan. All questions were answered. Return precautions discussed include worsening symptoms, or any other concerns. 08/27 20:08 Order name: Urinalysis w/ reflexes; Complete Time: 21:19 ms3 08/27 21:13 Order name: Test, Urine; Complete Time: 21:39 ms3 08/27 21:18 Order name: Urine Culture EDMS Administered Medications: 21:47 Drug: Nitrofurantoin PO 100 mg PO once; administer with food Route: PO; hb Disposition Summary: 08/27/23 21:39 Discharge Ordered Notes: Location: Home ms3 Condition: Stable ms3 Diagnosis - UTI/ Urinary tract infection, site not specified ms3 Followup: ms3 - With: Pito Ventura DO - When: 2 - 3 days - Reason: Recheck today's complaints Discharge Instructions: - Discharge Summary Sheet ms3 - Urinary Tract Infection, Adult ms3 Forms: - Medication Reconciliation Form ms3 - Thank You Letter ms3 - Antibiotic Education ms3 - Prescription Opioid Use ms3 - Patient Portal Instructions ms3 - Leadership Thank You Letter ms3 Prescriptions: - Macrobid 100 mg Oral Capsule - take 1 capsule ORAL route every 12 hours for 7 days; 14 capsule; Refills: 0, ms3 Product Selection Permitted Signatures: Dispatcher [employer] EDMS Leonora Aldridge, RN RN Eduardo Brody DO DO ms3 Carlotta Ledbetter RN RN nj1
--- NOTE | 2023-08-27 21:40 | ER ---
Nurse's Notes [facility] Name: Rachel Headley Age: 28 yrs Sex: Female : 1995 Arrival Date: 08/27/2023 Time: 19:22 Bed 9 Private MD: Diagnosis: UTI/ Urinary tract infection, site not specified Presentation: 08/27 19:41 Chief complaint: Patient states: Pelvic pain for a week, getting worse, no vaginal nj1 bleeding, denies vaginal discharge. CO burning with urination. Coronavirus screen: Vaccine status: Patient reports being unvaccinated. Ebola Screen: Patient denies travel to an Ebola-affected area in the 21 days before illness onset. Initial Sepsis Screen: Does the patient meet any 2 criteria? No. Patient's initial sepsis screen is negative. Does the patient have a suspected source of infection? No. Patient's initial sepsis screen is negative. Risk Assessment: Do you want to hurt yourself or someone else? Patient reports no desire to harm self or others. Onset of symptoms was August 20, 2023. 19:41 Method Of Arrival: Ambulatory [facility] 19:41 Acuity: RAMIRO 3 nj1 Historical: - Allergies: 19:44 No Known Allergies; nj1 - PMHx: 19:44 None; nj1 - PSHx: 19:44 None; nj1 - Immunization history:: Client reports having NOT received the Covid vaccine. - Social history:: Smoking status: Patient denies any tobacco usage or history of. Screenin:35 [facility] ED Fall Risk Assessment (Adult) Score/Fall Risk Level 0 - 2 = Low Risk hb Oriented to surroundings, Maintained a safe environment. Abuse screen: Denies threats or abuse. Denies injuries from another. Nutritional screening: No deficits noted. Tuberculosis screening: No symptoms or risk factors identified. Assessment: 20:34 General: Appears in no apparent distress. Behavior is calm, cooperative. Pain: Pain hb currently is 9 out of 10 on a pain scale. Neuro: Level of Consciousness is awake, alert, obeys commands, Oriented to person, place, time, situation. Cardiovascular: Patient's skin is warm and dry. Respiratory: Respiratory effort is even, unlabored, Respiratory pattern is regular, symmetrical. GI: No signs and/or symptoms were reported involving the gastrointestinal system. : Reports burning with urination, pain. : Reports. EENT: No signs and/or symptoms were reported regarding the EENT system. Derm: Skin is pink, warm \T\ dry. Musculoskeletal: No signs and/or symptoms reported regarding the musculoskeletal system. Vital Signs: 19:41 BP 122 / 63; Pulse 69; Resp 16; Temp 98.2(O); Pulse Ox 100% ; Weight 106.14 kg; Height nj1 5 ft. 6 in. ; Pain 9/10; 19:41 Body Mass Index 37.77 (106.14 kg, 167.64 cm) nj1 19:41 Pain Scale: Adult ct1 ED Course: 19:34 Patient arrived in ED. jj6 19:44 Triage completed. nj1 19:44 Arm band placed on right wrist. nj 19:53 Eduardo Brody DO is Attending Physician. ms3 20:31 Leonora Aldridge, RN is Primary Nurse. 20:35 Patient has correct armband on for positive identification. Provided Education on: . 21:04 Urinalysis w/ reflexes Sent. 21:39 Pito Ventura DO is Referral Physician. ms3 Administered Medications: 21:47 Drug: Nitrofurantoin PO 100 mg PO once; administer with food Route: PO; Medication: 20:35 VIS not applicable for this client. Outcome: 21:39 Discharge ordered by . ms3 21:47 Patient left the ED. Signatures: Elaine Sterling RN RN Leonora Aldridge RN RN Eduardo Brody DO DO ms3 Evie Garcia jj6 Carlotta Ledbetter RN RN nj1 Corrections: (The following items were deleted from the chart) 19:45 19:41 Pulse 69bpm; Resp 16bpm; Pulse Ox 100%; Temp 98.2F Oral; 106.14 kg; Height 5 ft. nj1 6 in.; BMI: 37.7; Pain 9/10, Adult; nj1
[2023-08-27] MEDS ORDERED: NITROFURAN MACRO 100 MG CAP PO ONE (21:56)
[2023-08-27 22:05] VITALS: BP 122/63; TEMP 98.2; O2SAT 100
== END 2023-08-27 21:47 | disposition home or self-care (01) ==
LOC: ER 19:22
DX: N39.0 Urinary tract infection, site not specified (principal)
CPT/HCPCS: 81001; 81025; 87086; 87088; 99283

== ENCOUNTER 2025-01-19 22:22 | Emergency (ER) | payer OTHER ==
--- OUTSIDE RECORDS SUMMARY | 2025-01-19 22:29 | XMS REPORT | Continuity of Care Document ---
Author Name Unknown Address [address] [facility] [address] [place] [address] [facility] [place] Address [address] [place] [address] Care Team Providers Care Director Trust Name Role Phone Pcp, Patient Does Not Have A Primary Care Physic karime SAJI TATUM Attending Clinician Unavailable SAJI TATUM Attending Clinician Unavailable TAHMINA BURGESS Attending Clinician Unavailable Lucrecia Huff CNM Attending Clinician [phone] Tahmina Sousa Attending Clinician [phone] LUCRECIA HUFF Attending Clinician UnavailFABIOLA Wagner Attending Clinician Unavailable FABIOLA CHAIDEZ Attending Clinician Unavailable Arvin LAURA K Rupali Attending Clinician [phone] Shamika AUGUSTIN, Danay Cota Attending Clinician Unavailable Jazz Brar DO Attending Clinician [phone] Evelin Loya MD Attending Clinicia n [facility]LE Attending Clinician Unavailable Lucrecia Huff CNM Attending Clinician [phone] MENA JACKSON Attending Clinician Unavail able Salinas AUGUSTIN, Natividad Attending Clinician Unavailabl e Lab, Ang-Rmchp Attending Clinician Unavailable RD SOTO Attending Clinician Unavailabl e Ultrasound, Ang-m Attending Clinician Unavailkalia Soto MD, Rd Cota Attending Clinician [phone] Daria SHIN, Zane Gonzalez Attending Clinician [phone] APOLINAR CAMARGO Attending Clinician Unav ailable Sheryl Brewer MD, Apolinar Attending Clinician + Doctor Unassigned, Mcneil Attending Clinician U navailable 1, [facility] Attending Clinician Unavailab jerrica Ramos MD, Neal Wright Attending Clinician [phone] NEAL RAMOS Attending Clinician Unavailable TERRELL RODRIGEZ Attending Clinician Unavailable Terrell Rodrigez MD Attending Clinician [phone] JACLYN GONZALEZ Attending Clinician Unavailable Jaclyn Gonzalez NP Attending Clinician + [phone] SAJI TATUM Admitting Clinician Unavailable FABIOLA CHAIDEZ Admitting Clinician Unavailable FABIOLA CHAIDEZ Admitting Clinician Unavailable NEAL RAMOS Admitting Clinician Unavailable Payers Payer Name Policy Type Policy Number Effective Date Expirati on Date Source [facility] [id number] 2023 00:00:00 Problems Condition Name Condition Details Condition Category Status Onset Date Resolution Date Last Treatment Date Treating Clinician Comments Source Other immediate hemorrhage Other immediate hemorrhage Disease Resolve d - 00:00: 00 2024-06-17 00:00:00 2024-06-17 10:50:29 [facility] Acute blood loss anemia Acute blood loss anemia Disease Resolve d 05-28 00:00: 00 2024-06-17 00:00:00 2024-06-17 10:50:54 [facility] Obstetrica l laceration Obstetrica l laceration Disease Resolve d - 00:00: 00 2024-06-17 00:00:00 2024-06-17 10:47:38 [facility] 39 weeks gestation of 39 weeks gestation of Disease Resolve d 0 7-15 00:00: 00 2024-06-17 00:00:00 2024-06-17 10:47:49 [facility] Decreased platelet count Decreased platelet count Disease Resolve d 0 6-27 00:00: 00 2024-06-17 00:00:00 2024-06-17 10:47:45 [facility] Sciatic leg pain Sciatic leg pain Disease Resolve d 5-08 00:00: 00 2024-06-17 00:00:00 2024-06-17 10:47:48 [facility] Pain of round ligament during Pain of round ligament during Disease Resolve d 4-19 00:00: 00 2024-06-17 00:00:00 2024-06-17 10:47:36 [facility] (spontaneo us vaginal delivery) (spontaneo us vaginal delivery) Disease Resolve d 2017-11 0-30 00:00: 00 2024-06-17 00:00:00 2024-06-17 10:47:44 [facility] Single live Single live Disease Resolve d 2017-11 0-30 00:00: 00 2024-06-17 00:00:00 2024-06-17 10:47:44 [facility] Rubella non-immune status, antepartum Rubella non-immune status, antepartum Disease Resolve d 5-14 00:00: 00 2024-06-17 00:00:00 2024-06-17 10:47:43 Overview: Formattin g of this note might be different from the original. Address pp [facility] Declines flu vaccine Declines flu vaccine Disease Resolve d 9- 00:00: 00 2024-06-17 00:00:00 2024-06-17 10:50:53 Overview: Formattin g of this note might be different from the original. Received today [facility] Obesity affecting Obesity affecting Disease Resolve d 7- 00:00: 00 2024-06-17 00:00:00 2024-06-17 10:47:41 [facility] related nausea, antepartum related nausea, antepartum Disease Resolve d 1-15 00:00: 00 2023-12-21 00:00:00 2023-12-21 19:16:05 [facility] BMI 37.0-37.9, adult BMI 37.0-37.9, adult Disease Resolve d 2017-11 00:00: 00 2023-11-22 00:00:00 2023-11-22 13:33:18 [facility] Need for MMR vaccine Need for MMR vaccine Disease Resolve d 2017-11 00:00: 00 2023-11-22 00:00:00 2023-11-22 13:33:24 [facility] Laceration , obstetrica l,minor Laceration , obstetrica l,minor Disease Resolve d 2017-11 030 00:00: 00 2023-11-22 00:00:00 2023-11-22 13:33:20 [facility] Elevated blood pressure reading without diagnosis of hypertensi on Elevated blood pressure reading without diagnosis of hypertensi on Disease Resolve d 2017-11 0 00:00: 00 2023-11-22 00:00:00 2023-11-22 13:33:19 [facility] Multiparit y Multiparit y Disease Resolve d 03-20 00:00: 00 2023-11-22 00:00:00 2023-11-22 13:33:21 [facility] spinal headache spinal headache Disease Resolve d 2017-11 00:00: 00 2018-11-07 00:00:00 2018-11-07 16:36:44 [facility] Obesity (BMI 30-39.9) Obesity (BMI 30-39.9) Disease Resolve d 2017-11 0 00:00: 00 2018-11-07 00:00:00 2018-11-07 16:53:09 [facility] Flu vaccine need Flu vaccine need Disease Resolve d 03-20 00:00: 00 2018-11-07 00:00:00 2018-11-07 16:36:33 [facility] 40 weeks gestation of 40 weeks gestation of Disease Resolve d 2017-11 0-29 00:00: 00 2018-09-17 00:00:00 2018-09-17 23:34:40 [facility] Positive GBS test Positive GBS test Disease Resolve d 2017-11 0-04 00:00: 00 2018-09-17 00:00:00 2018-09-17 23:34:46 [facility] Pain of round ligament affecting , antepartum Pain of round ligament affecting , antepartum Disease Resolve d 8-28 00:00: 00 2018-09-17 00:00:00 2018-09-17 23:34:47 [facility] Supervisio n of high-risk with insufficie nt care Supervisio n of high-risk with insufficie nt care Disease Resolve d 5-09 00:00: 00 2018-09-17 00:00:00 2018-09-17 23:34:52 [facility] Obesity affecting Obesity affecting Disease Resolve d 16 00:00: 00 2018-09-17 00:00:00 2018-09-17 23:34:54 [facility] Encounter for other contracept aliza management Encounter for other contracept aliza management Disease Resolve d 16 00:00: 00 2018-03-20 00:00:00 2018-03-20 15:29:44 [facility] Exposure to STD Exposure to STD Disease Resolve d 01-25 00:00: 00 2018-03-20 00:00:00 2018-03-20 15:29:44 [facility] Other general counseling and advice for contracept aliza management Other general counseling and advice for contracept aliza management Disease Resolve d 2-23 00:00: 00 2017-01-25 00:00:00 2017-01-25 11:37:48 [facility] Discomfort at episiotomy site Discomfort at episiotomy site Disease Resolve d 2-23 00:00: 00 2017-01-25 00:00:00 2017-01-25 11:37:37 [facility] Perineal laceration during delivery, delivered Perineal laceration during delivery, delivered Disease Resolve d 01-04 00:00: 00 2017-01-25 00:00:00 2017-01-25 11:37:40 [facility] Wound drainage Wound drainage Disease Resolve d 01-04 00:00: 00 2017-01-25 00:00:00 2017-01-25 11:37:43 [facility] Anemia, Anemia, Disease Active 01-04 00:00: 00 2017-01-25 00:00:00 2017-01-25 11:37:46 [facility] Vaginal delivery Vaginal delivery Disease Resolve d 12-15 00:00: 00 2017-01-04 00:00:00 2022-05-28 00:44:14 [facility] Single liveborn Single liveborn Disease Resolve d 12-15 00:00: 00 2017-01-04 00:00:00 2017-01-04 08:43:29 [facility] Labor and delivery indication for care or interventi on Labor and delivery indication for care or interventi on Disease Resolve d 12-13 00:00: 00 2017-01-04 00:00:00 2017-01-04 08:43:23 [facility] Abnormal quad screen Abnormal quad screen Disease Resolve d 06-07 00:00: 00 2016-12-15 00:00:00 2022-05-28 00:41:34 [facility] Vaginal yeast infection Vaginal yeast infection Disease Resolve d 11-28 00:00: 00 2016-12-13 00:00:00 2016-12-13 07:06:58 [facility] Acute nasopharyn gitis (common cold) Acute nasopharyn gitis (common cold) Disease Resolve d 2015-11 00:00: 00 2016-12-13 00:00:00 2016-12-13 07:07:01 [facility] Anemia of mother in , antepartum Anemia of mother in , antepartum Disease Resolve d 2015-11 00:00: 00 2016-12-13 00:00:00 2016-12-13 07:07:05 [facility] Supervisio n of high-risk with insufficie nt care Supervisio n of high-risk with insufficie nt care Disease Resolve d 06-06 00:00: 00 2016-12-13 00:00:00 2016-12-13 07:07:17 [facility] Uncertain dates, antepartum Uncertain dates, antepartum Disease Resolve d 06-06 00:00: 00 2016-12-13 00:00:00 2016-12-13 07:07:11 [facility] Allergies, Adverse Reactions, Alerts Allergy Name Allergy Type Status Severity Reaction(s) Onset Date Inactive Date Treating Clinician Comments Source NO KNOWN ALLERGIE S Drug Class Active [facility] Social History Social Habit Start Date Stop Date Quantity Comments Source ASSERTION 2023-09-09 00:00:00 [facility] Gender identity [facility] History of Social function 2024-07-08 00:00:00 2024-07-08 00:00:00 [facility] Alcoholic beverage intake 2024-07-08 00:00:00 2024-07-08 00:00:00 0 /d [facility] Tobacco use and exposure 2024-05-26 00:00:00 2024-05-26 00:00:00 Smokeless tobacco non-user [facility] Alcohol intake 2024-02-29 00:00:00 2024-02-29 00:00:00 0 /d [facility] Exposure to SARS-CoV-2 (event) 2022-08-25 00:00:00 2022-09-04 18:27:00 Not sure [facility] Sex assigned at 1995 00:00:00 1995 00:00:00 [facility] Smoking Status Start Date Stop Date Source Never smoked tobacco [facility] Medications Ordered Medication Name Filled Medication Name Start Date Stop Date Current Medication? Ordering Clinician Indication Dosage Frequency Signature (SIG) Comments Components Source methylergon ovine 0.2 mg tablet 05-30 00:00: 00 Yes [id number] 200ug Take 1 tablet by mouth every 6 (six) hours. [facility] ferrous sulfate tablet 325 mg 05-28 14:00: 00 Yes 325mg 325 mg, Oral, DAILY, First dose on Sun05/28/24 at 0900, Until Discontinu ed, Routine [facility] [id number] fum-folic () 27 mg iron- 1 mg folic tablet 05-28 00:00: 00 Yes [id number] 1{tbl} Take 1 tablet by mouth in the morning. [facility] docusate 100 mg capsule 05-28 00:00: 00 Yes [id number] 200mg Take 2 capsules by mouth once daily as needed for Constipati on. [facility] ferrous sulfate 325 mg (65 mg iron) tablet 05-28 00:00: 00 Yes [id number] 325mg Take 1 tablet by mouth in the morning. [facility] ibuprofen 800 mg tablet 05-28 00:00: 00 Yes [id number] 800mg Take 1 tablet by mouth every 8 (eight) hours as needed (pain). Take with food or milk. [facility] ibuprofen (IBU) tablet 800 mg 05-27 23:01: 36 Yes 800mg 800 mg, Oral, Q8HPRN, Starting on Sun05/27/24 at 1801, Until Discontinu ed, Routine, pain 7-10 [facility] rho(D) immune globulin (RHOPHYLAC) injection 300 mcg 05-27 22:49: 05 Yes 300ug [facility] diphenhydrA MINE (BENADRYL) tablet 25 mg 05-27 22:49: 01 Yes 25mg [facility] ondansetron (ZOFRAN (PF)) injection 4 mg 05-27 22:49: 01 Yes 4mg [facility] simethicone (GAS RELIEF (SIMETHICON E)) chewable tablet 160 mg 05-27 22:49: 01 Yes 160mg [facility] docusate (COLACE) capsule 200 mg 05-27 22:49: 01 Yes 200mg 200 mg, Oral, QDAILYPRN, Starting on Sun05/27/24 at 1749, Until Discontinu ed, Routine, Constipati on [facility] magnesium hydroxide (MILK OF MAGNESIA) 400 mg/5 mL suspension 30 mL 05-27 22:49: 01 Yes 30mL [facility] benzocaine- menthol (DERMOPLAST ) 20-0.5 % topical spray 05-27 16:34: 59 Yes Topical, PRN, Starting on Sun05/27/24 at 1134, Until Discontinu ed, Routine, Perineum discomfort [facility] acetaminoph en (TYLENOL) tablet 1,000 mg 05-27 14:10: 06 Yes 1000mg 1,000 mg, Oral, Q8HPRN, Starting on Sun05/27/24 at 0910, Until Discontinu ed, Routine, Pain (scale 4-6) [facility] ibuprofen (IBU) tablet 800 mg 05-27 14:10: 06 05-27 23:02 :29 No 800mg 800 mg, Oral, Q6HPRN, Starting on Sun05/27/24 at 0910, Until Sun05/27/24 at 1802, Routine, pain 7-10 [facility] lactated ringers IV infusion 500 mL 05-27 11:45: 00 05-27 11:07 :00 No 500mL at 999 mL/hr, 500 mL, IV Infusion, ONCE, 1 dose, On Sun05/27/24 at 0645, Routine [facility] sodium citrate-cit brendan acid (BICITRA) 500-334 mg/5 mL solution 30 mL 05-27 11:00: 02 05-27 11:08 :00 No 30mL 30 mL, Oral, PRE-PROCED URE ONCE, 1 dose, Starting on Sun05/27/24 at 0600, Until Sun05/27/24 at 0608, Routine, Surgery/Pr ocedure [facility] PIB ropivacaine 0.2 % (NAROPIN (PF)) epidural infusion 05-27 10:38: 00 05-29 23:02 :30 No Epidural, CONTINUOUS PRN, Starting on Sun05/27/24 at 0538, Until Sun05/29/24 at 1802, Routine, Intra-op [facility] morphine (2 mg/mL) injection 4 mg 05-27 03:00: 00 05-27 09:35 :00 No 4mg 4 mg, Slow IV Push, ONCE, 1 dose, On Sun05/26/24 at 2200, Routine [facility] morphine (2 mg/mL) injection 4 mg 05-26 18:45: 00 05-26 17:57 :00 No 4mg 4 mg, Slow IV Push, ONCE, 1 dose, On Sun05/26/24 at 1345, Routine [facility] lactated ringers IV infusion 500 mL 05-26 14:08: 43 05-27 22:49 :03 No 500mL at 999 mL/hr, 500 mL, IV Infusion, PRN - SEE INSTRUCTIO NS, Starting on Sun05/26/24 at 0908, Until Sun05/27/24 at 1749, Routine [facility] D5W-LR IV infusion 1,000 mL 05-26 14:08: 43 05-27 22:49 :03 No 1000mL at 1-125 mL/hr, IV Infusion, TITRATE, Starting on Sun05/26/24 at 0908, Until Sun05/27/24 at 1749, Routine [facility] ibuprofen (IBU) tablet 800 mg 07-21 01:30: 00 07-21 01:45 :00 No 800mg 800 mg, Oral, ONCE, 1 dose, On Sun07/20/23 at 2030, JENNIFER [facility] amoxicillin 500 mg capsule 2021-11 024 00:00: 00 11-22 00:00 :00 No [id number] 500mg Take 1 capsule by mouth in the morning and 1 capsule at noon and 1 capsule in the evening. [facility] neomycin-po lymyxin-hyd rocortisone otic solution 2021-11 0 00:00: 11-22 00:00 :00 No [id number] 3[drp] Place 3 Drops in right ear 4 (four) times daily. [facility] benzonatate 100 mg capsule 2021-11 00:00: 00 11-22 00:00 :00 No [id number] 100mg Take 1 capsule by mouth 3 (three) times daily as needed for Cough. [facility] naproxen 500 mg tablet 2021-11 00:00: 09-15 04:59 :00 No [id number] 500mg Take 1 tablet by mouth in the morning and 1 tablet in the evening. Take with meals. Do all this for 10 days. [facility] dexamethaso ne (DECADRON PHOSPHATE) injection 10 mg 06-25 02:00: 06-25 01:00 :00 No 10mg 10 mg, Intramuscu lar, ONCE, 1 dose, On 06/24/22 at 2100, Routine [facility] amoxicillin 500 mg tablet 06-24 00:00: 07-05 04:59 :00 No [id number] 500mg Take 1 tablet by mouth in the morning and 1 tablet at noon and 1 tablet in the evening. Do all this for 10 days. [facility] norgestimat e-ethinyl estradiol (ORTHO TRI-CYCLEN LO, 28,) 0.18/0.215/ 0.25 mg-25 mcg tablet 2017-11 2- 00:00: 11-22 00:00 :00 No [id number] 1{tbl} Take 1 tablet by mouth daily. [facility] ibuprofen 600 mg tablet 2017-11 030 00:00: 11-22 00:00 :00 No 600mg Take 1 tablet by mouth every 6 (six) hours as needed for Pain (scale 1-3) or Pain (scale 4-6) (Pain). Take with food or milk. [facility] Immunizations Ordered Immunization Name Filled Immunization Name Date Status Comments Source Influenza Virus Vaccine Quad IM 3+ YRS 2024-07-08 10:30:00 Completed [facility] TDAP 2024-07-08 10:30:00 Completed [facility] HPV9 2024-07-08 10:30:00 Completed [facility] Influenza Virus Vaccine Quad IM, Preserv and ABX Free 6 MO-64 YRS (FLUCELVAX) 2024-07-08 10:30:00 Completed [facility] MMR 2024-07-08 10:30:00 Completed [facility] Influenza Virus Vaccine Quad IM 3+ YRS 2024-04-16 00:00:00 Completed [facility] TDAP 2024-04-16 00:00:00 Completed [facility] HPV9 2024-04-16 00:00:00 Completed [facility] Influenza Virus Vaccine Quad IM, Preserv and ABX Free 6 MO-64 YRS (FLUCELVAX) 2024-04-16 00:00:00 Completed [facility] Influenza Virus Vaccine Quad IM 3+ YRS 2024-04-01 11:00:00 Completed [facility] TDAP 2024-04-01 11:00:00 Completed [facility] HPV9 2024-04-01 11:00:00 Completed [facility] Influenza Virus Vaccine Quad IM, Preserv and ABX Free 6 MO-64 YRS (FLUCELVAX) 2024-04-01 11:00:00 Completed [facility] Influenza Virus Vaccine Quad IM 3+ YRS 2024-03-18 16:15:00 Completed [facility] TDAP 2024-03-18 16:15:00 Completed [facility] HPV9 2024-03-18 16:15:00 Completed [facility] Influenza Virus Vaccine Quad IM, Preserv and ABX Free 6 MO-64 YRS (FLUCELVAX) 2024-03-18 16:15:00 Completed [facility] TDAP 2024-03-18 00:00:00 Completed Influenza Virus Vaccine Quad IM 3+ YRS 2024-03-05 08:30:00 Completed [facility] TDAP 2024-03-05 08:30:00 Completed [facility] HPV9 2024-03-05 08:30:00 Completed [facility] Influenza Virus Vaccine Quad IM, Preserv and ABX Free 6 MO-64 YRS (FLUCELVAX) 2024-03-05 08:30:00 Completed [facility] Influenza Virus Vaccine Quad IM 3+ YRS 2024-02-29 10:30:00 Completed [facility] TDAP 2024-02-29 10:30:00 Completed [facility] HPV9 2024-02-29 10:30:00 Completed [facility] Influenza Virus Vaccine Quad IM, Preserv and ABX Free 6 MO-64 YRS (FLUCELVAX) 2024-02-29 10:30:00 Completed [facility] Influenza Virus Vaccine Quad IM 3+ YRS 2024-02-19 10:00:00 Completed [facility] TDAP 2024-02-19 10:00:00 Completed [facility] HPV9 2024-02-19 10:00:00 Completed [facility] Influenza Virus Vaccine Quad IM, Preserv and ABX Free 6 MO-64 YRS (FLUCELVAX) 2024-02-19 10:00:00 Completed [facility] Influenza Virus Vaccine Quad IM 3+ YRS 2024-02-19 00:00:00 Completed [facility] TDAP 2024-02-19 00:00:00 Completed [facility] HPV9 2024-02-19 00:00:00 Completed [facility] Influenza Virus Vaccine Quad IM, Preserv and ABX Free 6 MO-64 YRS (FLUCELVAX) 2024-02-19 00:00:00 Completed [facility] Influenza Virus Vaccine Quad IM 3+ YRS 2024-02-14 10:15:00 Completed [facility] TDAP 2024-02-14 10:15:00 Completed [facility] HPV9 2024-02-14 10:15:00 Completed [facility] Influenza Virus Vaccine Quad IM, Preserv and ABX Free 6 MO-64 YRS (FLUCELVAX) 2024-02-14 10:15:00 Completed [facility] Influenza Virus Vaccine Quad IM 3+ YRS 2024-01-19 01:06:00 Completed [facility] TDAP 2024-01-19 01:06:00 Completed [facility] HPV9 2024-01-19 01:06:00 Completed [facility] Influenza Virus Vaccine Quad IM, Preserv and ABX Free 6 MO-64 YRS (FLUCELVAX) 2024-01-19 01:06:00 Completed [facility] Influenza Virus Vaccine Quad IM 3+ YRS 2024-01-17 10:45:00 Completed [facility] TDAP 2024-01-17 10:45:00 Completed [facility] HPV9 2024-01-17 10:45:00 Completed [facility] Influenza Virus Vaccine Quad IM, Preserv and ABX Free 6 MO-64 YRS (FLUCELVAX) 2024-01-17 10:45:00 Completed [facility] Influenza Virus Vaccine Quad IM 3+ YRS 2024-01-16 13:00:00 Completed [facility] TDAP 2024-01-16 13:00:00 Completed [facility] HPV9 2024-01-16 13:00:00 Completed [facility] Influenza Virus Vaccine Quad IM 3+ YRS 2023-12-20 10:30:00 Completed [facility] TDAP 2023-12-20 10:30:00 Completed [facility] HPV9 2023-12-20 10:30:00 Completed [facility] Influenza Virus Vaccine Quad IM 3+ YRS 2023-12-20 00:00:00 Completed [facility] TDAP 2023-12-20 00:00:00 Completed [facility] HPV9 2023-12-20 00:00:00 Completed [facility] Influenza Virus Vaccine Quad IM 3+ YRS 2023-12-19 11:15:00 Completed [facility] TDAP 2023-12-19 11:15:00 Completed [facility] HPV9 2023-12-19 11:15:00 Completed [facility] Influenza Virus Vaccine Quad IM 3+ YRS 2023-12-19 00:00:00 Completed [facility] TDAP 2023-12-19 00:00:00 Completed [facility] HPV9 2023-12-19 00:00:00 Completed [facility] Influenza Virus Vaccine Quad IM 3+ YRS 2023-12-05 00:00:00 Completed [facility] TDAP 2023-12-05 00:00:00 Completed [facility] HPV9 2023-12-05 00:00:00 Completed [facility] Influenza Virus Vaccine Quad IM 3+ YRS 2023-11-27 00:00:00 Completed [facility] TDAP 2023-11-27 00:00:00 Completed [facility] HPV9 2023-11-27 00:00:00 Completed [facility] Influenza Virus Vaccine Quad IM 3+ YRS 2023-11-22 13:00:00 Completed [facility] TDAP 2023-11-22 13:00:00 Completed [facility] HPV9 2023-11-22 13:00:00 Completed [facility] Influenza Virus Vaccine Quad IM 3+ YRS 2023-11-22 00:00:00 Completed [facility] TDAP 2023-11-22 00:00:00 Completed [facility] HPV9 2023-11-22 00:00:00 Completed [facility] HPV9 2019-04-01 00:00:00 Completed [facility] HPV9 2019-04-01 00:00:00 Completed [facility] HPV9 2019-04-01 00:00:00 Completed [facility] HPV9 2019-04-01 00:00:00 Completed [facility] HPV9 2018-10-15 00:00:00 Completed Influenza Virus Vaccine Quad .5 mL IM 6+ MO (FLUZONE/FLULAVAL/F LUARIX) 2018-10-15 00:00:00 Completed HPV9 2018-10-15 00:00:00 Completed [facility] Influenza Virus Vaccine Quad .5 mL IM 6+ MO (FLUZONE/FLULAVAL/F LUARIX) 2018-10-15 00:00:00 Completed [facility] HPV9 2018-10-15 00:00:00 Completed [facility] Influenza Virus Vaccine Quad .5 mL IM 6+ MO 2018-10-15 00:00:00 Completed [facility] HPV9 2018-10-15 00:00:00 Completed [facility] Influenza Virus Vaccine Quad .5 mL IM 6+ MO 2018-10-15 00:00:00 Completed [facility] HPV9 2018-09-10 00:00:00 Completed [facility] HPV9 2018-09-10 00:00:00 Completed [facility] HPV9 2018-09-10 00:00:00 Completed [facility] TDAP 2018-07-23 00:00:00 Completed [facility] TDAP 2018-07-23 00:00:00 Completed [facility] TDAP 2018-07-23 00:00:00 Completed [facility] TDAP 2018-07-23 00:00:00 Completed [facility] Influenza Virus Vaccine Quad IM 3+ YRS 2018-03-20 00:00:00 Completed [facility] Influenza Virus Vaccine Quad IM 3+ YRS 2018-03-20 00:00:00 Completed [facility] Influenza Virus Vaccine Quad IM 3+ YRS 2018-03-20 00:00:00 Completed [facility] Influenza Virus Vaccine Quad IM 3+ YRS 2018-03-20 00:00:00 Completed [facility] TDAP 2016-09-22 00:00:00 Completed [facility] TDAP 2016-09-22 00:00:00 Completed [facility] TDAP 2016-09-22 00:00:00 Completed [facility] Influenza Virus Vaccine Quad IM 3+ YRS 2016-08-10 00:00:00 Completed [facility] Influenza Virus Vaccine Quad IM 3+ YRS 2016-08-10 00:00:00 Completed [facility] Influenza Virus Vaccine Quad IM 3+ YRS 2016-08-10 00:00:00 Completed [facility] Vital Signs Vital Name Observation Time Observation Value Comments S ource Systolic blood pressure 2024-07-08 15:38:00 124 mm[Hg] [facility] Diastolic blood pressure 2024-07-08 15:38:00 71 mm[Hg] [facility] Heart rate 2024-07-08 15:38:00 68 /min [facility] Body temperature 2024-07-08 15:38:00 36.33 Diane [facility] Respiratory rate 2024-07-08 15:38:00 18 /min [facility] Body height 2024-07-08 15:38:00 167.6 cm [facility] Body weight 2024-07-08 15:38:00 101.787 kg [facility] BMI 2024-07-08 15:38:00 36.22 kg/m2 [facility] Systolic blood pressure 2024-06-17 15:53:00 126 mm[Hg] [facility] Diastolic blood pressure 2024-06-17 15:53:00 73 mm[Hg] [facility] Heart rate 2024-06-17 15:53:00 73 /min [facility] Body temperature 2024-06-17 15:53:00 36.61 Diane [facility] Respiratory rate 2024-06-17 15:53:00 18 /min [facility] Body height 2024-06-17 15:53:00 167.6 cm [facility] Body weight 2024-06-17 15:53:00 103.193 kg [facility] BMI 2024-06-17 15:53:00 36.72 kg/m2 [facility] Heart rate 2024-05-30 20:00:00 71 /min [facility] Oxygen saturation in Arterial blood by Pulse oximetry 2024-05-30 20:00:00 100 /min [facility] Systolic blood pressure 2024-05-30 18:00:00 104 mm[Hg] [facility] Diastolic blood pressure 2024-05-30 18:00:00 71 mm[Hg] [facility] Body temperature 2024-05-30 15:34:00 37.39 Diane [facility] Respiratory rate 2024-05-30 15:34:00 14 /min [facility] Body height 2024-05-30 15:34:00 167.6 cm [facility] Body weight 2024-05-30 15:34:00 109.498 kg [facility] BMI 2024-05-30 15:34:00 38.96 kg/m2 [facility] Systolic blood pressure 2024-05-28 12:45:00 111 mm[Hg] [facility] Diastolic blood pressure 2024-05-28 12:45:00 63 mm[Hg] [facility] Heart rate 2024-05-28 12:45:00 69 /min [facility] Body temperature 2024-05-28 12:45:00 35.78 Diane [facility] Respiratory rate 2024-05-28 12:45:00 18 /min [facility] Oxygen saturation in Arterial blood by Pulse oximetry 2024-05-28 12:45:00 99 /min [facility] Body height 2024-05-26 13:40:00 167.6 cm [facility] Body weight 2024-05-26 13:40:00 110.179 kg [facility] BMI 2024-05-26 13:40:00 39.21 kg/m2 [facility] Systolic blood pressure 2024-05-14 15:54:00 130 mm[Hg] [facility] Diastolic blood pressure 2024-05-14 15:54:00 69 mm[Hg] [facility] Heart rate 2024-05-14 15:54:00 94 /min [facility] Body temperature 2024-05-14 15:54:00 36.78 Diane [facility] Respiratory rate 2024-05-14 15:54:00 18 /min [facility] Body height 2024-05-14 15:54:00 167.6 cm [facility] Body weight 2024-05-14 15:54:00 107.673 kg [facility] BMI 2024-05-14 15:54:00 38.31 kg/m2 [facility] Systolic blood pressure 2024-05-07 15:56:00 110 mm[Hg] [facility] Diastolic blood pressure 2024-05-07 15:56:00 64 mm[Hg] [facility] Heart rate 2024-05-07 15:56:00 78 /min [facility] Body temperature 2024-05-07 15:56:00 36.44 Diane [facility] Respiratory rate 2024-05-07 15:56:00 18 /min [facility] Body height 2024-05-07 15:56:00 167.6 cm [facility] Body weight 2024-05-07 15:56:00 108.466 kg [facility] BMI 2024-05-07 15:56:00 38.60 kg/m2 [facility] Systolic blood pressure 2024-04-01 16:10:00 137 mm[Hg] [facility] Diastolic blood pressure 2024-04-01 16:10:00 71 mm[Hg] [facility] Heart rate 2024-04-01 16:10:00 90 /min [facility] Body temperature 2024-04-01 16:10:00 36.22 Diane [facility] Respiratory rate 2024-04-01 16:10:00 18 /min [facility] Body height 2024-04-01 16:10:00 167.6 cm [facility] Body weight 2024-04-01 16:10:00 108.211 kg [facility] BMI 2024-04-01 16:10:00 38.50 kg/m2 [facility] Systolic blood pressure 2024-03-18 21:21:00 130 mm[Hg] [facility] Diastolic blood pressure 2024-03-18 21:21:00 62 mm[Hg] [facility] Heart rate 2024-03-18 21:21:00 84 /min [facility] Body temperature 2024-03-18 21:21:00 36.17 Diane [facility] Respiratory rate 2024-03-18 21:21:00 18 /min [facility] Body height 2024-03-18 21:21:00 167.6 cm [facility] Body weight 2024-03-18 21:21:00 108.92 kg [facility] BMI 2024-03-18 21:21:00 38.76 kg/m2 [facility] Systolic blood pressure 2024-02-29 15:36:00 134 mm[Hg] [facility] Diastolic blood pressure 2024-02-29 15:36:00 83 mm[Hg] [facility] Heart rate 2024-02-29 15:36:00 92 /min [facility] Body temperature 2024-02-29 15:36:00 36.28 Diane [facility] Respiratory rate 2024-02-29 15:36:00 18 /min [facility] Body height 2024-02-29 15:36:00 167.6 cm [facility] Body weight 2024-02-29 15:36:00 108.92 kg [facility] BMI 2024-02-29 15:36:00 38.76 kg/m2 [facility] Systolic blood pressure 2024-02-14 15:19:00 124 mm[Hg] [facility] Diastolic blood pressure 2024-02-14 15:19:00 68 mm[Hg] [facility] Heart rate 2024-02-14 15:19:00 81 /min [facility] Body temperature 2024-02-14 15:19:00 36.78 Diane [facility] Respiratory rate 2024-02-14 15:19:00 17 /min [facility] Body height 2024-02-14 15:19:00 167.6 cm [facility] Body weight 2024-02-14 15:19:00 110.088 kg [facility] BMI 2024-02-14 15:19:00 39.17 kg/m2 [facility] Systolic blood pressure 2024-01-19 08:45:00 119 mm[Hg] [facility] Diastolic blood pressure 2024-01-19 08:45:00 54 mm[Hg] [facility] Heart rate 2024-01-19 08:45:00 88 /min [facility] Body temperature 2024-01-19 08:45:00 37.56 Diane [facility] Respiratory rate 2024-01-19 08:45:00 18 /min [facility] Oxygen saturation in Arterial blood by Pulse oximetry 2024-01-19 08:45:00 99 /min [facility] Body height 2024-01-19 07:03:00 167.6 cm [facility] Body weight 2024-01-19 07:03:00 107.23 kg [facility] BMI 2024-01-19 07:03:00 38.16 kg/m2 [facility] Systolic blood pressure 2024-01-17 16:55:00 121 mm[Hg] [facility] Diastolic blood pressure 2024-01-17 16:55:00 70 mm[Hg] [facility] Heart rate 2024-01-17 16:55:00 82 /min [facility] Body temperature 2024-01-17 16:55:00 35.78 Diane [facility] Respiratory rate 2024-01-17 16:55:00 18 /min [facility] Body height 2024-01-17 16:55:00 167.6 cm [facility] Body weight 2024-01-17 16:55:00 109.544 kg [facility] BMI 2024-01-17 16:55:00 38.98 kg/m2 [facility] Systolic blood pressure 2023-12-20 16:36:00 120 mm[Hg] [facility] Diastolic blood pressure 2023-12-20 16:36:00 67 mm[Hg] [facility] Heart rate 2023-12-20 16:36:00 72 /min [facility] Body temperature 2023-12-20 16:36:00 36.56 Diane [facility] Respiratory rate 2023-12-20 16:36:00 18 /min [facility] Body height 2023-12-20 16:36:00 167.6 cm [facility] Body weight 2023-12-20 16:36:00 109.033 kg [facility] BMI 2023-12-20 16:36:00 38.80 kg/m2 [facility] Systolic blood pressure 2023-11-22 19:11:00 127 mm[Hg] [facility] Diastolic blood pressure 2023-11-22 19:11:00 77 mm[Hg] [facility] Heart rate 2023-11-22 19:11:00 75 /min [facility] Body temperature 2023-11-22 19:11:00 36.72 Diane [facility] Body height 2023-11-22 19:11:00 167.6 cm [facility] 2023-11-22 19:11:00 108.863 kg [facility] BMI 2023-11-22 19:11:00 38.74 kg/m2 [facility] Sy[facility] pressure 2023-07-21 00:46:00 128 mm[Hg] [facility] Diastolic blood pressure 2023-07-21 00:46:00 56 mm[Hg] [facility] Heart rate 2023-07-21 00:46:00 72 /min [facility] Body [facility] 2023-07-21 00:46:00 37 Diane [facility] Respiratory rate 2023-07-21 00:46:00 16 /min [facility] Body height 2023-07-21 00:46:00 170.2 cm [facility] Body weight 2023-07-21 00:46:00 104.327 kg [facility] BMI 2023-07-21 00:46:00 36.02 kg/m2 [facility] Oxygen saturation in Arterial blood by Pulse oximetry 2023-07-21 00:46:00 100 /min [facility] Systolic blood pressure 2022-09-04 23:28:00 136 mm[Hg] [facility] Diastolic blood pressure 2022-09-04 23:28:00 78 mm[Hg] [facility] Heart rate 2022-09-04 23:28:00 81 /min [facility] Body temperature 2022-09-04 23:28:00 36.89 Diane [facility] Respiratory rate 2022-09-04 23:28:00 16 /min [facility] Body height 2022-09-04 23:28:00 167.6 cm [facility] weight 2022-09-04 23:28:00 106.142 kg [facility] BMI 2022-09-04 23:28:00 37.77 kg/m2 [facility] Oxygen saturation in Arterial blood by Pulse oximetry 2022-09-04 23:28:00 100 /min [facility] Systolic blood pressure 2022-06-25 00:44:00 134 mm[Hg] [facility] Diastolic blood pressure 2022-06-25 00:44:00 81 mm[Hg] [facility] Heart rate 2022-06-25 00:44:00 79 /min [facility] Body temperature 2022-06-25 00:44:00 36.33 Diane [facility] Respiratory rate 2022-06-25 00:44:00 18 /min [facility] Body height 2022-06-25 00:44:00 165.1 cm [facility] Body weight 2022-06-25 00:44:00 109.362 kg [facility] BMI 2022-06-25 00:44:00 40.12 kg/m2 [facility] Oxygen saturation in Arterial blood by Pulse oximetry 2022-06-25 00:44:00 100 /min [facility] Procedures Procedure Date / Time Performed Performing Clinician Source US PELVIS COMPLETE NON-OB 2024-05-30 17:03:12 AdumFabiola [facility] CBC WITH DIFF 2024-05-30 16:29:00 AdumFabiola [facility] HB ABO GROUPING 2024-05-30 16:29:00 [facility] 2024-05-28 05:19:00 Leigh Justice [facility] VENOUS CORD GAS 2024-05-27 12:04:00 [facility] CENTRAL NEURAXIAL BLOCK 2024-05-27 10:56:00 Seferino Sanz [facility] CBC WITH DIFF 2024-05-26 14:41:00 Janae Alcaraz [facility] HEPATITIS B SURFACE ANTIGEN 2024-05-26 14:41:00 Janae Alcaraz [facility] HB ABO GROUPING 2024-05-26 14:41:00 [facility] IMMUNE GLOBULIN 2024-05-26 14:41:00 Me karolina Justice [facility] HIV 1/2 AG-AB WITH REFLEX 2024-05-26 14:41:00 Janae Alcaraz [facility] SYPHILIS IGG/IGM 2024-05-26 14:41:00 Janae Alcaraz [facility] POCT URINALYSIS 2024-05-14 15:59:00 Lucrecia Huff [facility] POCT URINALYSIS 2024-04-01 16:10:00 Lucrecia Huff [facility] TDAP VACCINE, >11 YRS, IM 2024-03-18 21:35:58 Lucrecia Huff [facility] POCT URINALYSIS 2024-03-18 21:21:00 Lucrecia Huff [facility] GLUCOSE 1 HOUR POST PRANDIAL 2024-03-05 14:35:00 Lucrecia Huff [facility] CBC WITH DIFF 2024-03-05 14:35:00 Lucrecia Huff [facility] POCT URINALYSIS 2024-02-29 15:37:00 Lucrecia Huff [facility] SECOND AND THIRD TRIMESTER ULTRASOUND 2024-02-19 17:06:05 Lucrecia Huff [facility] POCT URINALYSIS 2024-02-14 00:00:00 Lucrecia Huff [facility] NOTICE OF PRIVACY PRACTICES 2024-01-19 06:57:52 Doctor Unassigned, Mcneil [facility] CONSENT/REFUSAL FOR DIAGNOSIS AND TREATMENT 2024-01-19 06:56:50 Doctor Unassigned, [facility] POCT URINALYSIS 2024-01-17 18:56:00 Lucrecia Huff [facility] FLU VACC ([id number]), 6 MO-64 YRS, .5ML, IM, QUAD (FLUCELVAX) 2024-01-17 17:29:19 Lucrecia Huff [facility] SECOND AND THIRD TRIMESTER ULTRASOUND 2024-01-16 19:36:00 Lucrecia Huff [facility] ALPHA FETOPROTEIN-MATERNAL SER 2023-12-20 17:15:00 Lucrecia Huff [facility] POCT URINALYSIS 2023-12-20 16:37:00 Lucrecia Huff [facility] CONSENT FOR NIPT 2023-12-20 06:01:00 Doctor Unas signed, [facility]il [facility] SECOND AND THIRD TRIMESTER ULTRASOUND 2023-12-19 17:31:00 Lucrecia Huff [facility] GLUCOSE 1 HOUR POST PRANDIAL 2023-11-22 20:15:00 Lucrecia Huff [facility] CBC WITH DIFF 2023-11-22 20:15:00 Lucrecia Huff [facility] RUBELLA SCREEN IGG 2023-11-22 20:15:00 Haleigh Huff [facility] VZV ANTIBODY SCREEN 2023-11-22 20:15:00 Jewel Huff [facility] HEPATITIS B SURFACE ANTIGEN 2023-11-22 20:15:00 Lucrecia Huff [facility] HCV ANTIBODY 2023-11-22 20:15:00 [facility] 2023-11-22 20:15:00 Lucrecia Huff [facility] URINE CULTURE 2023-11-22 20:15:00 Lucrecia Huff [facility] GC & CHLAMYDIA AMPLIFIED ASSAY 2023-11-22 20:15:00 Lucrecia Huff [facility] HIV 1/2 AG-AB WITH REFLEX 2023-11-22 20:15:00 Lucrecia Huff [facility] TRICHOMONAS AMPLIFIED ASSAY 2023-11-22 20:15:00 Lucrecia Huff [facility] PAP SMEAR-LIQUID BASED-CP 2023-11-22 20:15:00 Lucrecia Huff [facility] SYPHILIS IGG/IGM 2023-11-22 20:15:00 Lucrecia Huff [facility] POCT URINALYSIS W/O SPECIFIC GRAVITY 2023-11-22 19:23:00 Lucrecia Huff [facility] POCT TEST 2023-11-22 19:10:00 Jewel Huff [facility] PATIENT FINANCIAL POLICY 2023-11-22 19:01:25 Doctor Unassigned, [facility] ASSIGNMENT OF BENEFITS 2023-07-21 02:11:37 Docto r Unassigned, [facility] POCT TEST 2023-07-21 01:23:00 Neal Ramos [facility] CONSENT/REFUSAL FOR DIAGNOSIS AND TREATMENT 2023-07-21 00:23:09 Doctor Unassigned, [facility] NOTICE OF PRIVACY PRACTICES 2023-07-21 00:22:40 Doctor Unassigned, [facility] NOTICE OF PRIVACY PRACTICES 2022-09-04 23:19:33 Doctor Unassigned, Mc[facility]il [facility] CONSENT/REFUSAL FOR DIAGNOSIS AND TREATMENT 2022-09-04 23:18:32 Doctor Unassigned, [facility] NOTICE OF PRIVACY PRACTICES 2022-06-25 00:40:22 Doctor Unassigned, [facility] CONSENT/REFUSAL FOR DIAGNOSIS AND TREATMENT 2022-06-25 00:39:57 Doctor Unassigned, [facility] Encounters Start Date/Time End Date/Time Encounter Type Admission Type Attending [facility] Care Facility Care Department Encounter ID Source 2024-01-19 04:15:05 Outpatient P SAJI TATUM COREY [facility] QUAN [id number] [facility] 2022-09-05 05:19:58 Emergency X [facility] [id number] [facility] 2024-09-23 00:00:00 2024-09-23 08:30:43 Telephone Lucrecia Huff [facility] RESOLUTION REP [facility] MATERNAL & CHILD [facility]ALTH [facility] 1.2.840.114 350.1.13.10 4.2.7.2.686 [id number] [facility] 2024-07-08 10:30:00 2024-07-08 11:17:34 Outpatient R TAHMINA BURGESS [facility] [id number] [facility] 2024-07-08 10:30:00 2024-07-08 11:17:34 Office Visit Tomas Tahmina [facility] RESOLUTION REP [facility] & CHILD [facility] 1.840.114 350.1.13.10 4.2.7.2.686 [id number] [facility] 2024-06-17 10:30:00 2024-06-17 11:05:55 Outpatient R LUCRECIA HUFF [facility] [id number] [facility] 2024-06-17 10:30:00 2024-06-17 11:05:55 Routine Visit Lucrecia Huff [facility] RESOLUTION REP [facility] & CHILD [facility] 1.840.114 350.1.13.10 4.2.7.2.686 [id number] [facility] 2024-05-30 10:43:00 2024-05-30 15:15:00 Outpatient X FABIOLA CHAIDEZ [facility] [id number] [facility] 2024-05-30 10:43:00 2024-05-30 15:15:00 Emergency ArvinVeronique Vivian L [facility] 1.84.114 350.1.13.10 4.2.7.2.686 [id number] [facility] 2024-05-30 00:00:00 2024-05-30 08:42:49 Nurse Triage Danay Wick [facility] 1..114 350.1.13.10 4.2.7.2.686 [id number] [facility] 2024-05-26 08:18:00 2024-05-28 12:51:00 Inpatient P SAJI TATUM COREY [facility] QUAN [id number] [facility] 2024-05-26 08:18:00 2024-05-28 12:51:00 Hospital Encounter Rc Saji [facility] 1.2.840.114 350.1.13.10 4.2.7.2.686 [id number] [facility] 2024-05-27 05:16:00 2024-05-27 08:50:00 [facility]est[facility] 1.2.840.114 350.1.13.10 4.2.7.2.686 [id number] [facility] 2024-05-23 11:00:00 2024-05-23 11:00:00 Outpatient R LUCRECIA HUFF [facility] [id number] [facility] 2024-05-21 10:00:00 2024-05-21 10:00:00 Outpatient R LUCRECIA HUFF [facility] [id number] [facility] 2024-05-14 10:45:00 2024-05-14 11:11:01 Outpatient R LUCRECIA HUFF [facility] [id number] [facility] 2024-05-14 10:45:00 2024-05-14 11:11:01 Routine Visit Lucrecia Huff [facility] RESOLUTION REP [facility] MATERNAL & CHILD [facility] 1..840.114 350.1.13.10 4.2.7.2.686 [id number] [facility] 2024-05-07 11:00:00 2024-05-07 11:37:39 Outpatient R LUCRECIA HUFF [facility] [id number] [facility] 2024-05-07 11:00:00 2024-05-07 11:37:39 Routine Visit Lucrecia Huff [facility] RESOLUTION REP [facility] MATERNAL & CHILD [facility] 1.2.840.114 350.1.13.10 4.2.7.2.686 [id number] [facility] 2024-05-06 10:30:00 2024-05-06 10:30:00 Outpatient R LUCRECIA HUFF [facility] [id number] [facility] 2024-04-21 10:30:00 2024-04-21 10:30:00 Outpatient R MENA JACKSON [facility] [id number] [facility] 2024-04-16 00:00:00 2024-04-16 10:24:22 Nurse Triage Natividad Niño [facility] 1.840.114 350.1.13.10 4.2.7.2.686 [id number] [facility] 2024-04-01 11:00:00 2024-04-01 11:45:03 [facility] [id number] 2024-04-01 11:00:00 2024-04-01 11:45:03 [facility] MATERNAL & CHILD [facility] 1..840.114 350.1.13.10 4.2.7.2.686 [id number] [facility] 2024-03-18 16:15:00 2024-03-18 16:45:12 Outpatient R LUCRECIA HUFF [facility] [id number] [facility] 2024-03-18 16:15:00 2024-03-18 16:45:12 [facility] MATERNAL & CHILD [facility] 1..840.114 350.1.13.10 4.2.7.2.686 [id number] [facility] 2024-03-13 11:00:00 2024-03-13 11:00:00 Outpatient R LUCRECIA HUFF [facility] [id number] [facility] 2024-03-05 08:30:00 2024-03-05 09:36:34 Outpatient R LUCRECIA HUFF [facility] [id number] [facility] 2024-03-05 08:30:00 2024-03-05 09:36:34 [facility] Visit Lab, NoamRmamish Starkszoie [facility] & CHILD [facility] 1.840.114 350.1.13.10 4.2.7.2.686 [id number] [facility] 2024-02-29 10:30:00 2024-02-29 10:53:32 Outpatient R JENNIFERJEWEL RIVERONDA [facility] [id number] [facility] 2024-02-29 10:30:00 2024-02-29 10:53:32 Routine Visit Lucrecia Huff [facility] RESOLUTION REP [facility] MATERNAL & CHILD [facility] 1..114 350.1.13.10 4.2.7.2.686 [id number] [facility] 2024-02-19 10:00:00 2024-02-19 10:44:[address] SOTO [facility] [id number] [facility] 2024-02-19 10:00:00 2024-02-19 10:44:33 Batteryman Visit Ultrasound, Rd Flanagan [facility] RESOLUTION REP [facility] & CHILD [facility] ..114 350.1.13.10 4.2.7.2.686 [id number] [facility] 2024-02-19 00:00:00 2024-02-19 00:00:00 [facility] & CHILD [facility] 1..114 350.1.13.10 4.2.7.2.686 [id number] [facility] 2024-02-14 10:15:00 2024-02-14 10:31:03 Outpatient R LUCRECIA HUFF [facility] [id number] [facility] 2024-02-14 10:15:00 2024-02-14 10:31:03 [facility] & CHILD [facility] 1..840.114 350.1.13.10 4.2.7.2.686 [id number] [facility] 2024-01-19 01:06:00 2024-01-19 02:50:00 Outpatient FABIOLA GALDAMEZ [facility] QUAN [id number] [facility] 2024-01-19 01:06:00 2024-01-19 02:50:00 Hospital Encounter Fabiola Chaidez Brent J [facility] 1..840.114 350.1.13.10 4.2.7.2.686 [id number] [facility] 2024-01-17 10:45:00 2024-01-17 11:27:25 Outpatient R LUCRECIA HUFF [facility] [id number] [facility] 2024-01-17 10:45:00 2024-01-17 11:27:25 Routine Visit Lucrecia Huff [facility] RESOLUTION REP [facility] & CHILD [facility] 1..840.114 350.1.13.10 4.2.7.2.686 [id number] [facility] 2024-01-16 13:00:00 2024-01-16 16:25:09 Outpatient APOLINAR CHAN [facility] [id number] [facility] 2024-01-16 13:00:00 2024-01-16 16:25:09 Batteryman Visit Ultrasound, Apolinar Orellana [facility] RESOLUTION REP [facility] MATERNAL & CHILD [facility] 1.2840.114 350.1.13.10 4.2.7.2.686 [id number] [facility] 2023-12-20 10:30:00 2023-12-20 11:17:47 Outpatient R LUCRECIA HUFF [facility] [id number] [facility] 2023-12-20 10:30:00 2023-12-20 11:17:47 Routine Visit Lucrecia Huff [facility] RESOLUTION REP [facility] & CHILD [facility] 1.840.114 350.1.13.10 4.2.7.2.686 [id number] [facility] 2023-12-20 00:00:00 2023-12-20 00:00:00 Orders Only Doctor Unassigned, Mcneil [facility] 1.840.114 350.1.13.10 4.2.7.2.686 [id number] [facility] 2023-12-19 11:15:00 2023-12-19 11:32:[address] SOTO [facility] [id number] [facility] 2023-12-19 11:15:00 2023-12-19 11:32:21 Batteryman Visit 1, Sukumarkristine Room Rd Stoo [facility] RESOLUTION REP [facility] MATERNAL & CHILD [facility] 1.840.114 350.1.13.10 4.2.7.2.686 [id number] [facility] 2023-12-19 00:00:00 2023-12-19 00:00:00 Case Management Lucrecia Huff [facility] RESOLUTION REP [facility] & CHILD [facility] 1.2840.114 350.1.13.10 4.2.7.2.686 [id number] [facility] 2023-12-05 00:00:00 2023-12-05 00:00:00 Telephone Jenniferzoie Lucrecia Nelson [facility] RESOLUTION REP [facility] MATERNAL & CHILD [facility] 1.2.840.114 350.1.13.10 4.2.7.2.686 [id number] [facility] 2023-11-27 00:00:00 2023-11-27 00:00:00 Case Management Loismyla Lucrecia Nelson [facility] RESOLUTION REP [facility] & CHILD [facility] 1.2.840.114 350.1.13.10 4.2.7.2.686 [id number] [facility] 2023-11-22 12:30:00 2023-11-22 14:33:55 Outpatient R LUCRECIA HUFF [facility] [id number] [facility] 2023-11-22 13:00:00 2023-11-22 14:11:03 Initial Visit LoismylaLucrecia [facility] RESOLUTION REP [facility] & CHILD [facility] 1.2840.114 350.1.13.10 4.2.7.2.686 [id number] [facility] 2023-11-22 00:00:00 2023-11-22 00:00:00 Orders Only Doctor Unassigned, Mcneil [facility] 1.2.840.114 350.1.13.10 4.2.7.2.686 [id number] [facility] 2023-07-20 19:53:00 2023-07-20 21:17:00 Emergency Neal Ramos [facility] 1.2.840.114 350.1.13.10 4.2.7.2.686 [id number] [facility] 2023-07-20 19:53:00 2023-07-20 21:17:00 Emergency X NEAL RAMOS [facility] ERT [id number] [facility] 2022-09-04 18:29:00 2022-09-04 19:11:00 Emergency X TERRELL RODRIGEZ [facility] ERT [id number] [facility] 2022-09-04 18:29:00 2022-09-04 19:11:00 Emergency Terrell Rodrigez [facility] 1.2.840.114 350.1.13.10 4.2.7.2.686 [id number] [facility] 2022-06-24 19:47:00 2022-06-24 20:12:00 Emergency X JACLYN GONZALEZ [facility] ERT [id number] [facility] 2022-06-24 19:47:00 2022-06-24 20:12:00 Emergency Jaclyn Gonzalez [facility] 1.2.840.114 350.1.13.10 4.2.7.2.686 [id number] [facility] Results Test Description Test Time Test Comments Results Resul t Comments Source US PELVIS COMPLETE NON-OB 2024-05-12 9 19:12:49 EXAM: US PELVIS COMPLETE NON-OB HISTORY: 29 years-old Female; 3 days , heavy vaginal bleeding,check for retained products . TECHNIQUE: Transabdominal ultrasound imaging and color Doppler evaluationof the pelvis was performed. Printer Operator images were obtained for [facility]. COMPARISON: None FINDINGS: Uterus: The uterus is normal in size for post and measures 19.0 x 8.1 x 16.0cm. The myometrium appears homogenous. No focal lesion is detected. Theendometrium is normal in appearance for , measuring 1.5 cm.Slight endometrial thickening in the area of the lower uterine segment seenThe cervix is unremarkable. Right Adnexa:Ovary: The right ovary measures 4.6 x 2.5 x 2.8 cm, with a volume of 17.0ml. The right ovary is unremarkable. Left Adnexa:Ovary: The left ovary is not seen. Cul-de-sac: No free fluid is present. [facility] (D) IMMUNE [id number] 22:50:46* Test Item Value Reference Range Interpretation Comme nts RHIG CANDIDATE? (test code = 5188) No- see comment Patient is not a candidate for RhIg- Patient is Rh Positive.Performed at [facility] Laboratory Services - [facility] Blood [address] [place] [address]Clac Free: [phone] No. [id number] [facility] CenterGAL[facility] ONLY - SYPHILIS IGG/[id number] 14:15:15* Test Item Value Reference Range Interpretation Comme nts Syphilis IgG/IgM (test code = 41222-5) Non-reactive Non-reactive LUCIO (test code = LUCIO) Non-reactive - No serologic evidence of T. pallidum infection. Cannot exclude incubating or early syphilis. Submit a second specimen in 2-4 weeks if syphilis is clinically suspected. Equivocal - Further testing to follow. Reactive - Further testing to follow. Lab Interpretation (test code = 96860-4) Normal [facility] CenterVenous Cord [id number] 12:21:49* Test Item Value Reference Range Interpretation Comme nts VENOUS BASE EXCESS, CORD (te st code = 8265958301) -2.5 mEq/L VENOUS PH, CORD (test code = 7344551159) 7.36 7.25-7.45 VENOUS PC02, CORD (test code = 9566354015) 41 27-49 VENOUS PO2, CORD (test code = 7159665224) 31 17-41 VENOUS BICARBONATE, CORD (te st code = 1001384691) 23 12-29 [facility] CenterArterial Cord [id number] 12:21:28* Test Item Value Reference Range Interpretation Comme nts BASE EXCESS, CORD (test code = 1507173509) -6.4 mEq/L AC PH, CORD (BEAKER) (test c ode = 3394919484) 7.24 7.18-7.38 PC02, CORD (test code = 9158599951) 51 32-66 PO2, CORD (test code = 1918282245) 25 10-30 BICARBONATE, CORD (test code = 8397248158) 21 17-27 [facility] CenterCentral Neuraxial [id number] 10:56:00 Seferino Morales MD ? ? 05/27/2024 ?5:56 AM Central Neuraxial Block Date/Time: 05/27/2024 5:56 AM Performed by: Seferino Morales, MDAuthorized by: Evelin Loya MD ?Patient Location: OBEnd Time: 05/27/2024 5:56 AMReason for Block: OB request, Patient request, Labor analgesia, Surgical anesthesia and Post-op pain managementStaff: ? ?Resident/GUN NUMBER: Greyson Buitrago, DO ?Performed by: resident/CRNAPreanesthetic Checklist: patient identified, IV checked, risks and benefits explained, monitors and equipment checked, timeout performed, pre-op evaluation, site marked and anesthesia consentProcedure: ?Type of Neuraxial: Epidural ? Sterility Prep gloves, mask, cap, drape andhand hygiene ?Prep: Betadine and patient draped ? ?Monitoring: heart rate, continuous pulse ox, heart rate / toco and NIBP ?Location: lumbar (1-5) ?Lumbar: L3-L4 ?Approach: midline ? ?Technique: catheter, EDDIE saline and EDDIE air ?Guidance with: landmark technique}Epidural/Spinal [place] and/orCatheter: ?Epidural/Spinal Kit: BBraun ?Needle Type: Tuohy ?Needle Gauge: 17 G ?Needle Length: 3.5 in (8.89 cm) ?Needle Insertion Depth: 7 ?Catheter Type: multiport ? ?Catheter Size: 19 G ? ?Catheterat Skin Depth: 12 ?Number of Attempts: 1 ?Test Dose: lidocaine 1.5% with epinephrine 1-to-200,000 and negative ? ?Dose: 3 cc ? ?Catheter Securement Method: surgical tape, Tegaderm, clear occlusive dressing and liquid medical adhesiveAssessment: ?Sensory Level: above T10 ?Block Outcome: a full evaluation is pending, patient comfortable, patient satisfied, patient tolerated procedure well, positivepain relief and successful block ? ?Procedure Assessment: patient tolerated procedure well with no complicationsNotes: ? Timeout was performed. Pt prepped and draped in usual sterile fashion. Skin anesthetized with lidocaine wheal at ?L3/4/5 interspace. Negative aspiration x3, negative test dose. Loss and secured as detailed above.Attempts x 1, no immediate complications apparent.[facility] CenterHIV 1/2 AG-AB WITH [id number] 18:03:45* Test Item Value Reference Range Interpretation Comme nts HIV Semi-quantitative (test code = 96504-7) 0.17 Negative LUCIO (test code = LUCIO) Non-reactive for HIV-1 antigen and HIV-1/HIV-2 antibodies. ?No laboratory evidence of HIV infection. ?Repeat in 2-4 weeks if acute HIV infection is suspected. [facility] CenterHepatitis B Surface [id number] 16:03:34 * Test Item Value Reference Range Interpretation Comme nts HBsAg Semi-Quantitative (scarlet t code = 5195-3) 0.10 Negative [facility] CenterCBC with [id number] 15:01:31* Test Item Value Reference Range Interpretation Comme nts WBC (test code = 6690-2) 8.05 4.30-11.10 RBC (test code = 789-8) 3.72 3.93-5.25 L HGB (test code = 718-7) 10.7 g/dL 11.6-15.0 L HCT (test code = 4544-3) 32.4 % 35.7-45.2 L MCV (test code = 787-2) 87.1 fL 80.6-95.5 MCH (test code = 785-6) 28.8 pg 25.9-32.8 MCHC (test code = 786-4) 33.0 g/dL 31.6-35.1 RDW-SD (test code = 64304-7) 43.9 fL 39.0-49.9 RDW-CV (test code = 788-0) 14.0 % 12.0-15.5 PLT (test code = 777-3) 151 166-358 L MPV (test code = 34209-4) 12.0 fL 9.5-12.9 NRBC/100 WBC (test code = 4387276247) 0.0 0.0-10.0 NRBC x10^3 (test code = 4314297908) See_Comment [Automated messa ge] The system which generated this result transmitted reference range: 10*3/?L. The reference range was not used to interpret this result as normal/abnormal. GRAN MAT (NEUT) % (test code = 770-8) 74.0 % IMM GRAN % (test code = 1496268180) 0.50 % LYMPH % (test code = 736-9) 17.6 % MONO % (test code = 5905-5) 6.2 % EOS % (test code = 713-8) 1.5 % BASO % (test code = 706-2) 0.2 % GRAN MAT x10^3(ANC) (test code = 2227568732) 5.95 10*3/uL 1.88-7.09 IMM GRAN x10^3 (test code = 2246024091) 0.04 10*3/uL 0.00-0.06 LYMPH x10^3 (test code = 731-0) 1.42 10*3/uL 1.32-3.29 MONO x10^3 (test code = 742-7) 0.50 10*3/uL 0.33-0.92 EOS x10^3 (test code = 711-2) 0.12 10*3/uL 0.03-0.39 BASO x10^3 (test code = 704-7) 0.01-0.07 Lab Interpretation (test code = 60564-8) Abnormal [facility] CenterType and Screen - ONCE [id number] 14:52:00 * Test Item Value Reference Range Interpretation Comme nts ABO & RH (test code = 20) O POSITIVE IAT (test code = 1185) Negative [facility] CenterPOCT URINALYSIS W SPECIFIC [id number] 15:59:00* Test Item Value Reference Range Interpretation Comme nts POCT U SP GRAV (test code = 3255) . 1.005-1.025 POCT PH U (test code = 3254) 8 mg/dl 5-8 POCT U LEUK EST (test code = 3263) Neg Negative - Negative POCT U NIT (test code = 3262) Neg Negative - Negati ve POCT U PROT (test code = 3259) Trace Negative - Negat aliza POCT U GLU (test code = 3256) Nml Negative - Negati ve POCT U KETONE (test code = 3258) None Negative - Neg ative POCT U UROBILI (test code = 3260) . 0.2-1 POCT U BILI (test code = 3261) . Negative - Negat aliza POCT U BLD (test code = 3257) Trace Negative - Negati ve POCT U COLOR (test code = 3266) . POCT U APPEAR (test code = 3267) [facility] URINALYSIS W SPECIFIC [id number] 16:10:00* Test Item Value Reference Range Interpretation Comme nts POCT U SP GRAV (test code = 3255) . 1.005-1.025 POCT PH U (test code = 3254) 8 mg/dl 5-8 POCT U LEUK EST (test code = 3263) Trace Negative - Negative POCT U NIT (test code = 3262) Neg Negative - Negati ve POCT U PROT (test code = 3259) 1+ Negative - Negat aliza POCT U GLU (test code = 3256) Nml Negative - Negati ve POCT U KETONE (test code = 3258) . Negative - Neg ative POCT U UROBILI (test code = 3260) . 0.2-1 POCT U BILI (test code = 3261) . Negative - Negat aliza POCT U BLD (test code = 3257) Trace Negative - Negati ve POCT U COLOR (test code = 3266) . POCT U APPEAR (test code = 3267) . [facility] URINALYSIS W SPECIFIC [id number] 21:21:00* Test Item Value Reference Range Interpretation Comme nts POCT U SP GRAV (test code = 3255) . 1.005-1.025 POCT PH U (test code = 3254) 5 mg/dl 5-8 POCT U LEUK EST (test code = 3263) Trace Negative - Negative POCT U NIT (test code = 3262) Neg Negative - Negati ve POCT U PROT (test code = 3259) 1+ Negative - Negat aliza POCT U GLU (test code = 3256) Nml Negative - Negati ve POCT U KETONE (test code = 3258) None Negative - Neg ative POCT U UROBILI (test code = 3260) . 0.2-1 POCT U BILI (test code = 3261) . Negative - Negat aliza POCT U BLD (test code = 3257) Trace Negative - Negati ve POCT U COLOR (test code = 3266) . POCT U APPEAR (test code = 3267) . [facility] URINALYSIS W SPECIFIC [id number] 15:37:00* Test Item Value Reference Range Interpretation Comme nts POCT U SP GRAV (test code = 3255) . 1.005-1.025 POCT PH U (test code = 3254) 8 mg/dl 5-8 POCT U LEUK EST (test code = 3263) Neg Negative - Negative POCT U NIT (test code = 3262) Neg Negative - Negati ve POCT U PROT (test code = 3259) Trace Negative - Negat aliza POCT U GLU (test code = 3256) Nml Negative - Negati ve POCT U KETONE (test code = 3258) Neg Negative - Neg ative POCT U UROBILI (test code = 3260) . 0.2-1 POCT U BILI (test code = 3261) . Negative - Negat aliza POCT U BLD (test code = 3257) Trace Negative - Negati ve POCT U COLOR (test code = 3266) POCT U APPEAR (test code = 3267) [facility] URINALYSIS W SPECIFIC [id number] 15:21:00* Test Item Value Reference Range Interpretation Comme nts POCT U SP GRAV (test code = 3255) . 1.005-1.025 POCT PH U (test code = 3254) 8 mg/dl 5-8 POCT U LEUK EST (test code = 3263) negative Negative - Negative POCT U NIT (test code = 3262) negative Negative - Negati ve POCT U PROT (test code = 3259) trace Negative - Negat aliza POCT U GLU (test code = 3256) normal Negative - Negati ve POCT U KETONE (test code = 3258) negative Negative - Neg ative POCT U UROBILI (test code = 3260) . 0.2-1 POCT U BILI (test code = 3261) . Negative - Negat aliza POCT U BLD (test code = 3257) negative Negative - Negati ve POCT U COLOR (test code = 3266) . POCT U APPEAR (test code = 3267) . [facility] URINALYSIS W SPECIFIC [id number] 15:21:00* Test Item Value Reference Range Interpretation Comme nts POCT U SP GRAV (test code = 3255) . 1.005-1.025 POCT PH U (test code = 3254) 8 mg/dl 5-8 POCT U LEUK EST (test code = 3263) negative Negative - Negative POCT U NIT (test code = 3262) negative Negative - Negati ve POCT U PROT (test code = 3259) trace Negative - Negat aliza POCT U GLU (test code = 3256) normal Negative - Negati ve POCT U KETONE (test code = 3258) negative Negative - Neg ative POCT U UROBILI (test code = 3260) . 0.2-1 POCT U BILI (test code = 3261) . Negative - Negat aliza POCT U BLD (test code = 3257) negative Negative - Negati ve POCT U COLOR (test code = 3266) . POCT U APPEAR (test code = 3267) . [facility] URINALYSIS W SPECIFIC [id number] 15:21:00* Test Item Value Reference Range Interpretation Comme nts POCT U SP GRAV (test code = 3255) . 1.005-1.025 POCT PH U (test code = 3254) 8 mg/dl 5-8 POCT U LEUK EST (test code = 3263) negative Negative - Negative POCT U NIT (test code = 3262) negative Negative - Negati ve POCT U PROT (test code = 3259) trace Negative - Negat aliza POCT U GLU (test code = 3256) normal Negative - Negati ve POCT U KETONE (test code = 3258) negative Negative - Neg ative POCT U UROBILI (test code = 3260) . 0.2-1 POCT U BILI (test code = 3261) . Negative - Negat aliza POCT U BLD (test code = 3257) negative Negative - Negati ve POCT U COLOR (test code = 3266) . POCT U APPEAR (test code = 3267) . [facility] URINALYSIS W SPECIFIC [id number] 18:57:00* Test Item Value Reference Range Interpretation Comme nts POCT U SP GRAV (test code = 3255) . 1.005-1.025 POCT PH U (test code = 3254) 8 mg/dl 5-8 POCT U LEUK EST (test code = 3263) Trace Negative - Negative POCT U NIT (test code = 3262) Neg Negative - Negati ve POCT U PROT (test code = 3259) Trace Negative - Negat aliza POCT U GLU (test code = 3256) Nml Negative - Negati ve POCT U KETONE (test code = 3258) None Negative - Neg ative POCT U UROBILI (test code = 3260) . 0.2-1 POCT U BILI (test code = 3261) . Negative - Negat aliza POCT U BLD (test code = 3257) Trace Negative - Negati ve POCT U COLOR (test code = 3266) . POCT U APPEAR (test code = 3267) . [facility] CenterALPHA FETOPROTEIN-MATERNAL [id number] 19:28:08* Test Item Value Reference Range Interpretation Comme nts AFP-MS (test code = 3613858055) 25.0 ng/mL AFP-MS MoM (test code = 6338238032) 0.98 WEIGHT (test code = 9195440047) 240.375 lbs RACE (test code = 3256385693) GEST. AGE (test code = 6493686165) 16,4 Gestational age reflects sample collection date. 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 DEP (test code = 9561567405) No LMP (test code = 4801839662) US DATE (test code = 9445847081) 90235977 PE DATE (test code = 7678878295) METHOD (test code = 4905693239) US MULT GEST (test code = 0293203239) No Down Syndrome History (test code = 4727183472) No NTD HX (test code = 4087712659) No INITAL OR REPEAT (test code = 6048785292) Initial Testing SMOKER (test code = 6868678557) No RH (test code = 9325250379) Positive OSB INTERP (test code = 7151987464) See Note The maternal ser um AFP result is NOT elevated for a of thisgestational age. The risk of an open neural tube defect is less thanthe screening cut-off. OSB RSK (test code = 3811008511) 1:17280 The risk of OSB is equal to 1:84647Naf OSB cut-off is 2.46 (1:104) OSB SCRN (test code = 2032396268) Negative [facility] CenterALPHA FETOPROTEIN-MATERNAL [id number] 19:28:08* Test Item Value Reference Range Interpretation Comme nts AFP-MS (test code = 4233877985) 25.0 ng/mL AFP-MS MoM (test code = 3892147940) 0.98 WEIGHT (test code = 2344411176) 240.375 lbs RACE (test code = 6197423001) GEST. AGE (test code = 8454464218) 16,4 Gestational age reflects sample collection date. 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 DEP (test code = 5386140040) No LMP (test code = 6935064278) US DATE (test code = 6101465439) 58089698 PE DATE (test code = 5863814342) METHOD (test code = 6735544358) US MULT GEST (test code = 5238259028) No Down Syndrome History (test code = 4724769437) No NTD HX (test code = 7701125512) No INITAL OR REPEAT (test code = 4426315799) Initial Testing SMOKER (test code = 7870941075) No RH (test code = 8456967202) Positive OSB INTERP (test code = 3290861768) See Note The maternal ser um AFP result is NOT elevated for a of thisgestational age. The risk of an open neural tube defect is less thanthe screening cut-off. OSB RSK (test code = 7131549002) 1:65959 The risk of OSB is equal to 1:44931Uny OSB cut-off is 2.46 (1:104) OSB SCRN (test code = 8288486812) Negative [facility] CenterPOCT URINAL[facility] W SPECIFIC [id number] 16:37:00* Test Item Value Reference Range Interpretation Comme nts POCT U SP GRAV (test code = 3255) . 1.005-1.025 POCT PH U (test code = 3254) 8 mg/dl 5-8 POCT U LEUK EST (test code = 3263) Neg Negative - Negative POCT U NIT (test code = 3262) Neg Negative - Negati ve POCT U PROT (test code = 3259) Trace Negative - Negat aliza POCT U GLU (test code = 3256) Nml Negative - Negati ve POCT U KETONE (test code = 3258) 1+ Negative - Neg ative POCT U UROBILI (test code = 3260) . 0.2-1 POCT U BILI (test code = 3261) . Negative - Negat aliza POCT U BLD (test code = 3257) Trace Negative - Negati ve POCT U COLOR (test code = 3266) . POCT U APPEAR (test code = 3267) [facility] CenterPOMT URINALYSIS W SPECIFIC [id number] 16:37:00* Test Item Value Reference Range Interpretation Comme nts POCT U SP GRAV (test code = 3255) . 1.005-1.025 POCT PH U (test code = 3254) 8 mg/dl 5-8 POCT U LEUK EST (test code = 3263) Neg Negative - Negative POCT U NIT (test code = 3262) Neg Negative - Negati ve POCT U PROT (test code = 3259) Trace Negative - Negat aliza POCT U GLU (test code = 3256) Nml Negative - Negati ve POCT U KETONE (test code = 3258) 1+ Negative - Neg ative POCT U UROBILI (test code = 3260) . 0.2-1 POCT U BILI (test code = 3261) . Negative - Negat aliza POCT U BLD (test code = 3257) Trace Negative - Negati ve POCT U COLOR (test code = 3266) . POCT U APPEAR (test code = 3267) [facility] [id number] 21:23:14 * Test Item Value Reference Range Interpretation Comme [facility] Rubella screen IgG (test code = [id number]) Negative Negative LUCIO (test code = LUCIO) Positive - Indicat es the patient was exposed to Rubella through infection or vaccination.Negative - Indicates the patient could be susceptible to Rubella infection.Equivocal - A second specimen should be sent. [facility] Center[facility] ANTIBODY [id number] 21:23:14* Test Item Value Reference Range Interpretation Comme [facility] VZV IgG antibody (test code = 08275-1) Positive Negative LUCIO (test code = LUCIO) Positive - Indicat es the patient was exposed to VZV through infection or vaccination.Negative - Indicates the patient could be susceptible to VZV infection.Equivocal - A second specimen should be sent for testing. [facility]GAL ONLY - SYPHILIS [id number] 16:40:24* Test Item Value Reference Range Interpretation Comme [facility] Syphilis IgG/IgM (test code = 34119-2) Non-reactive Non-reactive LUCIO (test code = LUCIO) Non-reactive - No serologic evidence of T. pallidum infection. Cannot exclude incubating or early syphilis. Submit a second specimen in 2-4 weeks if syphilis is clinically suspected. Equivocal - Further testing to follow. Reactive - Further testing to follow. Lab Interpretation (test code = 93611-7) Normal [facility] CenterPRENATAL WORKUP, BLOOD [id number] 07:19:00 * Test Item Value Reference Range Interpretation Comme nts ABO & RH (test code = 20) O POSITIVE IAT (test code = 1185) Negative [facility] CenterHI 1/2 AG-AB WITH [id number] 06:51:43* Test Item Value Reference Range Interpretation Comme [facility] HIV Semi-quantitative (test code = 79534-3) 0.08 Negative LUCOI (test code = LUCIO) Non-reactive for HIV-1 antigen and HIV-1/HIV-2 antibodies. ?No laboratory evidence of HIV infection. ?Repeat in 2-4 weeks if acute HIV infection is suspected. [facility] CenterHCV [id number] 05:36:32* Test Item Value Reference Range Interpretation Comme [facility] HCV Ab (test code = 85565-0) Negative HCV Semi-Quantitative (test code = 07907-0) 0.03 [facility] CenterHEPATITIS B SURFACE [id number] 05:19:35 * Test Item Value Reference Range Interpretation Comme nts HBsAg Semi-Quantitative (scarlet t code = 5195-3) 0.08 Negative [facility] WITH [id number] 05:11:12* Test Item Value Reference Range Interpretation Comme nts WBC (test code = 6690-2) 6.75 See_Comment [Automated messa ge] The system which generated this result transmitted reference range: 4.30 - 11.10 10*3/?L. The reference range was not used to interpret this result as normal/abnormal. RBC (test code = 789-8) 4.09 See_Comment [Automated messa ge] The system which generated this result transmitted reference range: 3.93 - 5.25 10*6/?L. The reference range was not used to interpret this result as normal/abnormal. HGB (test code = 718-7) 12.1 g/dL 11.6-15.0 HCT (test code = 4544-3) 34.9 % 35.7-45.2 L MCV (test code = 787-2) 85.3 fL 80.6-95.5 MCH (test code = 785-6) 29.6 pg 25.9-32.8 MCHC (test code = 786-4) 34.7 g/dL 31.6-35.1 RDW-SD (test code = 99616-0) 38.3 fL 39.0-49.9 L RDW-CV (test code = 788-0) 12.4 % 12.0-15.5 PLT (test code = 777-3) 180 See_Comment [Automated messa ge] The system which generated this result transmitted reference range: 166 - 358 10*3/?L. The reference range was not used to interpret this result as normal/abnormal. MPV (test code = 06644-7) 11.4 fL 9.5-12.9 NRBC/100 WBC (test code = 7451507738) 0.0 See_Comment [Automated me ssage] The system which generated this result transmitted reference range: 0.0 - 10.0 /100 WBCs. The reference range was not used to interpret this result as normal/abnormal. NRBC x10^3 (test code = 0940415606) See_Comment [Automated messa ge] The system which generated this result transmitted reference range: 10*3/?L. The reference range was not used to interpret this result as normal/abnormal. GRAN MAT (NEUT) % (test code = 770-8) 78.2 % IMM GRAN % (test code = 4857671434) 0.30 % LYMPH % (test code = 736-9) 16.7 % MONO % (test code = 5905-5) 4.3 % EOS % (test code = 713-8) 0.4 % BASO % (test code = 706-2) 0.1 % GRAN MAT x10^3(ANC) (test code = 1515924262) 5.27 10*3/uL 1.88-7.09 IMM GRAN x10^3 (test code = 4510679877) 0.00-0.06 LYMPH x10^3 (test code = 731-0) 1.13 10*3/uL 1.32-3.29 L MONO x10^3 (test code = 742-7) 0.29 10*3/uL 0.33-0.92 L EOS x10^3 (test code = 711-2) 0.03 10*3/uL 0.03-0.39 BASO x10^3 (test code = 704-7) 0.01-0.07 Lab Interpretation (test code = 16186-4) Abnormal [facility] CenterGlucose 1 Hour Post [id number] 04:47:12* Test Item Value Reference Range Interpretation Comme nts GLUC 1 HR (test code = 5911536372) 107 mg/dL 120-170 L Lab Interpretation (test cod e = 43970-5) Abnormal [facility] CenterPOCT Urinalysis w/o Specific [id number] 19:23:00* Test Item Value Reference Range Interpretation Comme nts POCT PH U (test code = 3254) 8 mg/dl 5-8 POCT U LEUK EST (test code = 3263) Negative Negative - Negative POCT U NIT (test code = 3262) negative Negative - Negati ve POCT U PROT (test code = 3259) 1+ Negative - Negat aliza POCT U GLU (test code = 3256) negative Negative - Negati ve POCT U KETONE (test code = 3258) negative Negative - Neg ative POCT U BLD (test code = 3257) negative Negative - Negati ve [facility] CenterPOCT [id number] 19:10:00* Test Item Value Reference Range Interpretation Comme nts POCT PREG (test code = 1605) Positive On board controls acceptable with C Line (test code = 3574) Yes POCT PREG LOT # (test code = 3575) POCT PREG TEST DATE ( test code = 3576) [facility] CenterPOCT [id number] 01:23:00* Test Item Value Reference Range Interpretation Comme nts POCT PREG (test code = 1605) Negative On board controls acceptable with C Line (test code = 3574) Yes POCT PREG LOT # (test code = 3575) [id number] POCT PREG TEST DATE ( test code = 3576) 11/14/2024 Lab Interpretation (test cod e = 75640-1) Normal [facility] History and Physical Notes Date/Time Note Provider Source 2024-05-30 13:16:35 TRIAGE HISTORY & PHYSICAL IDENTIFYING DATA Jhony Headley is 29 year old, /White : 1995 Primary Care Physician: PATIENT DOES NOT HAVE A PCP CHIEF COMPLAINT Bleeding, HISTORY OF PRESENT ILLNESS Jhony Headley is a 29 year old female ,3 days s/p uncomplicated at [place], presents to labor and delivery with c/o heavy vaginal bleeding.Patient reports that she saturated three pads in one hour this morning, denies any blood clots. . Patient c/o feeling dizzy, and getting fatigued easily, Denies SOB, palpitations or chest pain Post hg was 8.6 Bleeding has been scant since arriving on L/D No pre-eclampsia sx or other complaints. PAST OBSTETRIC HISTORY OB History Para Term AB Living 3 3 3 3 SAB IAB Ectopic Multiple Live Births 0 3 # Outcome Date GA Lbr Eliceo/2nd Weight Sex Delivery Anes PTL Lv 3 Term 05/27/24 39w2d 3260 g F NORMAL SPONT EPI RAHEEM 2 Term 09/09/18 40w0d 3900 g M VAGINAL EPI RAHEEM 1 Term 12/14/16 40w1d 3345 g F VAGINAL EPI RAHEEM Comments: Maternal Age: 19; :1; Parity:1 Mother's Blood Type:O pos Baby's Blood Type:O pos Maternal Serological Test:normal Maternal Group B Strep Screening:negative; Adequate Treatment:not applicable Complications:yes - positive quad screen Labor Complications:no OAE: passed Hepatitis B Vaccine:yes Problems:no PAST MEDICAL HISTORY Problem list: Patient Active Problem List Diagnosis Date Noted Other immediate hemorrhage 05/30/2024 Acute blood loss anemia 05/28/2024 Obstetrical laceration 05/28/2024 39 weeks gestation of 05/26/2024 Decreased platelet count 05/08/2024 Sciatic leg pain 03/19/2024 Pain of round ligament during 02/29/2024 (spontaneous vaginal delivery) 09/10/2018 Single live 09/10/2018 Rubella non-immune status, antepartum 03/25/2018 Declines flu vaccine 08/10/2016 Obesity affecting 06/06/2016 Operations: No past surgical history on file. Past Medical History: Diagnosis Date Anemia of mother in , antepartum 09/25/2016 spinal headache 09/17/2018 Vaginal yeast infection 11/28/2016 CURRENT HEALTH STATUS Medications: No current facility-administered medications for this encounter. Allergies and drug reactions: Patient has no known allergies. HOME MEDICATIONS Medications Prior to Admission Medication Sig Dispense Refill Last Dose docusate 100 mg capsule Take 2 capsules by mouth once daily as needed for Constipation. 60 capsule 1 ferrous sulfate 325 mg (65 mg iron) tablet Take 1 tablet by mouth in the morning. 30 tablet 2 ibuprofen 800 mg tablet Take 1 tablet by mouth every 8 (eight) hours as needed (pain). Take with food or milk. 21 tablet 0 [id number] fum-folic () 27 mg iron- 1 mg folic tablet Take 1 tablet by mouth in the morning. 100 tablet 3 SOCIAL HISTORY Tobacco History: Social History Tobacco Use Smoking Status Never Passive exposure: Never Smokeless Tobacco Never Drug History: Social History Substance and Sexual Activity Drug Use No Alcohol History: Social History Substance and Sexual Activity Alcohol Use No Alcohol/week: 0.0 standard drinks of alcohol FAMILY HISTORY Family History Problem Relation Age of Onset No Significant Medical Problems Mother No Significant Medical Problems Father No Significant Medical Problems Sister No Significant Medical Problems Brother No Significant Medical Problems Maternal Grandmother No Significant Medical Problems Maternal Grandfather No Significant Medical Problems Paternal Grandmother No Significant Medical Problems Paternal Grandfather No Significant Medical Problems Sister Arthritis NoFHx Asthma NoFHx defects NoFHx Breast Cancer NoFHx Colon Cancer NoFHx Ovarian Cancer NoFHx Uterine Cancer NoFHx Cancer NoFHx Depression NoFHx Diabetes NoFHx Genetic NoFHx Heart NoFHx High cholesterol NoFHx Hypertension NoFHx Mental retardation NoFHx Neurological NoFHx Osteoporosis NoFHx Psychiatry NoFHx Other - see comments NoFHx REVIEW OF SYSTEMS General: negative Constitutional: negative Eyes: negative ENT/Mouth: negative Cardiovascular: negative Respiratory: negative Gastrointestinal:negative Genitourinary: negative Musculoskeletal: negative Skin/breast: negative Neurological: negative Psychiatric: negative Endocrine: negative Hemat/Lymph: negative Allergic/Immuno:none VITAL SIGNS BP: (104-126)/(49-81) Temp: [37.4 ?C (99.3 ?F)] Temp source: Oral (05/30 1034) Pulse: [61-83] Resp: [14] SpO2: [99 %-100 %] Height: [167.6 cm (5' 6")] Weight: [109.5 kg (241 lb 6.4 oz)] BMI (calculated): [38.96] PHYSICAL EXAMINATIONS Gen: alert and oriented, well appearing, no distress CV: RRR Resp: normal work of breathing Abd: Soft,non tender, fundus firm below the umbilicus Ext: no calf tenderness or edema Perineum- Peripad - very scant amount of blood Speculum: Scant blood in the vault No blood clots Patulous cervix, 1 cm REVIEW OF LABORATORY, PATHOLOGY, AND RADIOLOGY DATA Lab results: Type & Screen HIV Hep B Syphilis Chlamydia ABO & RH Date Value Ref Range Status 05/30/2024 O POSITIVE Final HIV Ag-Ab Multiplex Date Value Ref Range Status 07/12/2018 Non-reactive Non-reactive Final No components found for: "HBSHBSAG" Syphilis IgG/IgM Date Value Ref Range Status 05/26/2024 Non-reactive Non-reactive Final C. trachomatis Nucleic Acid Date Value Ref Range Status 05/07/2024 Negative Negative Final IAT Date Value Ref Range Status 05/30/2024 Negative Final Varicella Rubella Glucose Group B Strep CBC VZV IgG antibody Date Value Ref Range Status 11/22/2023 Positive Negative Final Rubella screen IgG Date Value Ref Range Status 11/22/2023 Negative Negative Final GLUC 1 HR Date Value Ref Range Status 03/05/2024 87 (L) 120 - 170 mg/dL Final No results found for: "CGBS" HGB Date Value Ref Range Status 05/30/2024 9.4 (L) 11.6 - 15.0 g/dL Final HCT Date Value Ref Range Status 05/30/2024 28.8 (L) 35.7 - 45.2 % Final PLT Date Value Ref Range Status 05/30/2024 168 166 - 358 10*3/?L Final Narrative & Impression EXAM: US PELVIS COMPLETE NON-OB HISTORY: 29 years-old Female; 3 days , heavy vaginal bleeding, check for retained products . TECHNIQUE: Transabdominal ultrasound imaging and color Doppler evaluation of the pelvis was performed. Printer Operator images were obtained for the record. COMPARISON: None FINDINGS: Uterus: The uterus is normal in size for post and measures 19.0 x 8.1 x 16.0 cm. The myometrium appears homogenous. No focal lesion is detected. The endometrium is normal in appearance for , measuring 1.5 cm. Slight endometrial thickening in the area of the lower uterine segment seen The cervix is unremarkable. Right Adnexa: Ovary: The right ovary measures 4.6 x 2.5 x 2.8 cm, with a volume of 17.0 ml. The right ovary is unremarkable. Left Adnexa: Ovary: The left ovary is not seen. Cul-de-sac: No free fluid is present. IMPRESSION Normal ultrasound the uterus and right ovary. Left ovary was not visualized. Possible blood clots in the lower uterine segment I, Sebastian Retana MD., have reviewed this study and agree with the above report. Imaging Active Hospital Problems Diagnosis Date Noted Other immediate hemorrhage 05/30/2024 Acute blood loss anemia 05/28/2024 Resolved Hospital Problems No resolved problems to display. Present on Admission: Other immediate hemorrhage Acute blood loss anemia ASSESSMENT AND PLAN Jhony Headley is a 29 year old presents with increased vaginal bleeding 3 days s/p uncomplicated . - No bleeding on examination and no bleeding whilst on the floor - Ultrasound showed findings consistent with immediate uterus with possible blood clots in MOSES but no RPOC ( I reviewed images on PACS) - Hg upward trend at 9.4 g/dl - Will discharge with methergine series for 24 hours - Advised to continue Iron supplements as prescribed - Keep appointment as scheduled with her provider Fabiola Chaidez MD [facility] 2024-05-26 09:12:36 TRIAGE/L&D HISTORY & PHYSICAL IDENTIFYING DATA Jhony Headley is 29 year old, /White, 39w1d, female with APRIL 06/01/2024, by Ultrasound. : 1995 Primary Care Physician: PATIENT DOES NOT HAVE A PCP CHIEF COMPLAINT IOL HISTORY OF PRESENT ILLNESS Jhony Headley is a 29 year old at 39w1d who presents for IOL. Patient denies vaginal bleeding, denies leakage of fluid, denies contractions. Patient denies headache, denies nausea/vomiting, denies RUQ pain, denies visual abnormalities. Endorses normal movement. PAST OBSTETRIC HISTORY OB History Para Term AB Living 3 2 2 2 SAB IAB Ectopic Multiple Live Births 0 2 # Outcome Date GA Lbr Eliceo/2nd Weight Sex Delivery Anes PTL Lv 3 Current 2 Term 09/09/18 40w0d 3900 g M VAGINAL EPI RAHEEM 1 Term 12/14/16 40w1d 3345 g F VAGINAL EPI RAHEEM Comments: Maternal Age: 19; :1; Parity:1 Mother's Blood Type:O pos Baby's Blood Type:O pos Maternal Serological Test:normal Maternal Group B Strep Screening:negative; Adequate Treatment:not applicable Complications:yes - positive quad screen Labor Complications:no OAE: passed Hepatitis B Vaccine:yes Problems:no PAST MEDICAL HISTORY Problem list: Patient Active Problem List Diagnosis Date Noted 39 weeks gestation of 05/26/2024 Decreased platelet count 05/08/2024 Sciatic leg pain 03/19/2024 Pain of round ligament during 02/29/2024 Rubella non-immune status, antepartum 03/25/2018 Declines flu vaccine 08/10/2016 Obesity affecting 06/06/2016 Operations: No past surgical history on file. Past Medical History: Diagnosis Date Anemia of mother in , antepartum 09/25/2016 spinal headache 09/17/2018 Vaginal yeast infection 11/28/2016 CURRENT HEALTH STATUS Medications: Current Facility-Administered Medications Medication Dose Route Frequency Last Rate Last Admin [id number]-LR IV infusion 1,000 mL 1,000 mL IV Infusion TITRATE 125 mL/hr at 05/26/24 0939 1,000 mL at 05/26/24 0939 lactated ringers IV infusion 500 mL 500 mL IV Infusion PRN - SEE INSTRUCTIONS lidocaine 1% (PF) (XYLOCAINE) injection 0.3 mL 0.3 mL Infiltration PRN - SEE INSTRUCTIONS lidocaine 1% (XYLOCAINE) 10 mg/mL (1 %) injection 50 mL 50 mL Infiltration PRN - SEE INSTRUCTIONS oxytocin (PITOCIN) 30 units in NS 500 mL IV infusion 2-40 xavier-units/min IV Infusion TITRATE sodium citrate-citric acid (BICITRA) 500-334 mg/5 mL solution 30 mL 30 mL Oral PRE-PROCEDURE ONCE Allergies and drug reactions: Patient has no known allergies. HOME MEDICATIONS No medications prior to admission. SOCIAL HISTORY Tobacco History: Social History Tobacco Use Smoking Status Never Passive exposure: Never Smokeless Tobacco Never Drug History: Social History Substance and Sexual Activity Drug Use No Alcohol History: Social History Substance and Sexual Activity Alcohol Use No Alcohol/week: 0.0 standard drinks of alcohol FAMILY HISTORY Family History Problem Relation Age of Onset No Significant Medical Problems Mother No Significant Medical Problems Father No Significant Medical Problems Sister No Significant Medical Problems Brother No Significant Medical Problems Maternal Grandmother No Significant Medical Problems Maternal Grandfather No Significant Medical Problems Paternal Grandmother No Significant Medical Problems Paternal Grandfather No Significant Medical Problems Sister Arthritis NoFHx Asthma NoFHx defects NoFHx Breast Cancer NoFHx Colon Cancer NoFHx Ovarian Cancer NoFHx Uterine Cancer NoFHx Cancer NoFHx Depression NoFHx Diabetes NoFHx Genetic NoFHx Heart NoFHx High cholesterol NoFHx Hypertension NoFHx Mental retardation NoFHx Neurological NoFHx Osteoporosis NoFHx Psychiatry NoFHx Other - see comments NoFHx REVIEW OF SYSTEMS General: negative Skin: negative HEENT: negative Neck: negative HEME: negative Resp: negative Cardio: negative GI: negative : negative Endo: negative Neuro: negative Back: negative AKI: negative Psych: negative VITAL SIGNS BP: (108-114)/(53-59) Temp: [36.7 ?C (98.1 ?F)] Temp source: Axillary (05/26 0845) Pulse: [79-89] Resp: [20] SpO2: [100 %] Height: [167.6 cm (5' 6")] Weight: [110.2 kg (242 lb 14.4 oz)] BMI (calculated): [39.21] PHYSICAL EXAMINATIONS General: patient alert and in no acute distress HEENT: symmetric, negative for masses Lungs: unlabored breathing Breast: deferred Cardiology: peripheral pulses intact and regular Abdomen: soft, non-tender, non-distended, no liver, spleen or abnormal masses palpated and Gravid Extremities: no clubbing, cyanosis, or edema Neuro: patient moving all extremities, no facial droop : 20/Floating REVIEW OF LABORATORY, PATHOLOGY, AND RADIOLOGY DATA Lab results: Type & Screen Lab Results Component Value Date/Time IABORH O POSITIVE 11/22/2023 02:15 PM IAT Negative 11/22/2023 02:15 PM Serologies Lab Results Component Value Date/Time VZVIGG Positive 11/22/2023 02:15 PM HIVMULTIPLEX Non-reactive 07/12/2018 08:59 AM RUBG Negative 11/22/2023 02:15 PM SYPIGG Non-reactive 04/01/2024 11:44 AM SYPIGG Nonreactive 09/09/2018 08:34 AM HBSAG Negative 11/22/2023 02:15 PM HBSAG 0.08 11/22/2023 02:15 PM Chlamydia Lab Results Component Value Date/Time VCAA Negative 05/07/2024 11:34 AM Group B Strep Lab Results Component Value Date/Time CGB Negative 05/07/2024 11:34 AM GTT Lab Results Component Value Date/Time GLUF 91 10/30/2012 10:13 AM [id number] 87 (L) 03/05/2024 09:35 AM CBC Lab Results Component Value Date/Time HGB 11.5 (L) 05/07/2024 11:34 AM HGB 13.7 10/30/2012 10:13 AM HCT 35.3 (L) 05/07/2024 11:34 AM HCT 39.6 10/30/2012 10:13 AM PLT 163 (L) 05/07/2024 11:34 AM PLT 213 10/30/2012 10:13 AM Active Hospital Problems Diagnosis Date Noted 39 weeks gestation of 05/26/2024 Obesity affecting 06/06/2016 Resolved Hospital Problems No resolved problems to display. Present on Admission: 39 weeks gestation of Obesity affecting Placenta Accreta Screening Prior ? : No Prior Uterine Surgery?: No Placenta low lying/previa in current ? : No Screening outcome: A positive screening outcome indicates a history of prior delivery or prior uterine surgery, AND the presence of either a placenta low lying/previa or ultrasound suspicion of PASD in the current . Negative screening. ASSESSMENT AND PLAN Jhony Headley is a 29 year old at 39w1d by d/u(10) who presents for IOL. IOL - Denies ctx, vb, lof, dfm - SVE: 2/0/Floating - Contractions (number / 10 minute): irreg - Plan: Admit for IOL with FB . Antepartum course reviewed - 1 h 87, sero negative, Rnot immune, VZVimmune, HPV immune, O positive/IAT negative, GBS negative, Pap NILM 11/2023 - H/H, plt: 11.5 / 35.3, 163 on 05/07/24 - PP control plan: will discuss - [facility] Fetus - Presentation on admission: cephalic - anterior placenta - EFW: 3129 g - FHT reactive and reassuring - Normal anatomy scan Janae Alcaraz MD Associated attestation - Saji Tatum DO - 05/26/2024 10:27 AM CDT Attending addendum: I was L&D faculty on 05/26/2024 and agree with H&P below. I discussed the plan of care with the residents. Saji Tatum DO [facility] - Health Procedure Notes Date/Time Note Provider Source 2024-05-27 05:56:11 Associated Order(s): Central Neuraxial Block Central Neuraxial Block Date/Time: 05/27/2024 5:56 AM Performed by: Seferino Morales MD Authorized by: Evelin Loya MD Patient Location: OB End Time: 05/27/2024 5:56 AM Reason for Block: OB request, Patient request, Labor analgesia, Surgical anesthesia and Post-op pain management Staff: Resident/GUN NUMBER: Greyson Buitrago DO Performed by: resident/GUN NUMBER Preanesthetic Checklist: patient identified, IV checked, risks and benefits explained, monitors and equipment checked, timeout performed, pre-op evaluation, site marked and anesthesia consent Procedure: Type of Neuraxial: Epidural Sterility Prep gloves, mask, cap, drape and hand hygiene Prep: Betadine and patient draped Monitoring: heart rate, continuous pulse ox, heart rate / toco and NIBP Location: lumbar (1-5) Lumbar: L3-L4 Approach: midline Technique: catheter, EDDIE saline and EDDIE air Guidance with: landmark technique} Epidural/Spinal [place] and/or Catheter: Epidural/Spinal Kit: Sadieun Needle Type: Tuohy Needle Gauge: 17 G Needle Length: 3.5 in (8.89 cm) Needle Insertion Depth: 7 Catheter Type: multiport Catheter Size: 19 G Catheter at Skin Depth: 12 Number of Attempts: 1 Test Dose: lidocaine 1.5% with epinephrine 1-to-200,000 and negative Dose: 3 cc Catheter Securement Method: surgical tape, Tegaderm, clear occlusive dressing and liquid medical adhesive Assessment: Sensory Level: above T10 Block Outcome: a full evaluation is pending, patient comfortable, patient satisfied, patient tolerated procedure well, positive pain relief and successful block Procedure Assessment: patient tolerated procedure well with no complications Notes: Timeout was performed. Pt prepped and draped in usual sterile fashion. Skin anesthetized with lidocaine wheal at L3/4/5 interspace. Negative aspiration x3, negative test dose. Loss and secured as detailed above. Attempts x 1, no immediate complications apparent. AN-ANESTHESIOLOGY [facility] 2024-05-26 10:47:22 Procedure(s): INSERT CERVICAL DILATOR Pre-Procedure Diagnose(s): 39 weeks gestation of Post-Procedure Diagnose(s): 39 weeks gestation of Jhony Headley is a 29 year old female 39w1d Marlow insertion: Insertion date and time: 05/26/24 @1045 Marlow catheter inserted through cervix in sterile fashion using digits and inflated with 60 cc sterile saline. Marlow bulb firmly in place inside internal os. Catheter taped to patient leg under traction. Patient tolerated procedure well. Please use the table below for: SVE 1/0/Floating CERVIX: Consistency : 0; Position: 0, Station: 0 Score 0 1 2 3 Dilation (cm) 0 cm 1-2 cm 3-4 cm >5 cm Effacement 0 - 30 % 40 - 50 % 60 - 70 % > 80 % Consistency of the cervix Stiff Moderately soft Very soft Position of the cervix Posterior Median Anterior Station -3 -2 -1 to 0 +1, +2 Janae Alcaraz MD [facility] Notes Date/Time Note Provider Source 2024-09-23 08:28:52 Called pt, pt having breast pain x 1 day. States right nipple pain and now redness. Advised will need appt for evaluation. Pt reports 10 hours away. Advised will need to find local urgent care. Strict ER warnings given. Pt verbalized understanding. Nicolette Villatoro RN 09/23/24 8:29 AM [facility] 2024-09-23 08:20:00 Jhony Headley is a 29 year old female Pt is calling to speak with a nurse about pain in her breast. [facility] [facility] Andrew Cabrera [facility] 2024-05-30 10:34:55 Jhony Headley is a 29 year old female c/o when woke up this morning had swelling on right side of face after sleeping on her right side, swelling now subsided, also states she feels her vaginal bleeding is too much for post 3 day delivery, states saturated 3 pads in 1 hour, wants to be checked out Called L&d spoke with Karla AUGUSTIN , stated would see pt upstairs Jessica Brizuela RN [facility] 2024-05-30 08:25:00 Regarding: dizzy/blurred vision x yesterday woke up with whole right side of body swollen ----- Message from Mahi Zayas sent at 05/30/2024 8:24 AM CDT ----- Jhony Headley is a 29 year old female Delivered 05/27 Danay Wick RN [facility] 2024-05-30 08:25:00 Adult Triage Assessment Last Clinic Visit: 05/27/2024 (spontaneous vaginal delivery) Primary Symptom: blurry vision Onset / Duration: this morning upon waking Location / Description: blurry vision Pain / Severity: 05/21 Associated Symptoms: right side of body swollen; dizziness Fever / Method: denies Hydration: little bit pepsi; last void Treatment so far: none Effect on ADL's: concerned and unsure what to do LMP: 05/27/2024 at 39w2d; Pre-existing condition / Immunocompromised: Past Medical History: Diagnosis Date Anemia of mother in , antepartum 09/25/2016 spinal headache 09/17/2018 Vaginal yeast infection 11/28/2016 Advice given per Vision Loss or Change Adult Protocol. Patient advised to go to ER for further evaluation. Voices understanding and denies further needs at this time. Reason for Disposition [1] Blurred vision or visual changes AND [2] present now AND [3] sudden onset or new (e.g., minutes, hours, days) Protocols used: - Vision Loss or [id number] [facility] 2024-05-28 11:03:52 Problem: Falls, Risk of Goal: Absence of falls Outcome: Adequate for discharge Problem: Discharge Planning - Goal: Adequate for discharge Outcome: Adequate for discharge Goal: Mood stable Outcome: Adequate for discharge Problem: Pain Goal: Control of pain at or below patient's documented comfort goal Outcome: Adequate for discharge Goal: Reduction in pain sensation Outcome: Adequate for discharge Darlene Dorsey RN [facility] 2024-05-27 23:43:57 Problem: Falls, Risk of Goal: Absence of falls Outcome: Progressing as expected Problem: Discharge Planning - Goal: Adequate for discharge Outcome: Progressing as expected Goal: Mood stable Outcome: Progressing as expected Problem: Pain Goal: Control of pain at or below patient's documented comfort goal Outcome: Progressing as expected Goal: Reduction in pain sensation Outcome: Progressing as expected [facility] 2024-05-27 16:45:27 Problem: Falls, Risk of Goal: Absence of falls Outcome: Progressing as expected Problem: Discharge Planning - Goal: Adequate for discharge Outcome: Progressing as expected Goal: Mood stable Outcome: Progressing as expected Problem: Pain Goal: Control of pain at or below patient's documented comfort goal Outcome: Progressing as expected Goal: Reduction in pain sensation Outcome: Progressing as expected [facility] 2024-05-27 07:44:52 Problem: Intrapartum process (including labor pain) Goal: Absence of or reduction of complications of labor Outcome: Change in patient condition/care plan Goal: Able to cope with pain Outcome: Change in patient condition/care plan Goal: Adequate to move to next level of care Outcome: Change in patient condition/care plan Goal: Reduction in pain sensation Outcome: Change in patient condition/care plan yla Haley RN [facility] 2024-05-27 07:13:05 DELIVERY BY SPONTANEOUS VAGINAL DELIVERY Delivery Date: 05/27/2024 Delivery Time: 6:51 AM Delivery Summary The patient was admitted to the Labor & Delivery unit for IOL at 39 weeks. Delivery Physician: Velia Marin MD Assisting Physician: Yaz Dominguez MD OB Faculty: Rachna Ferrell MD Intrapartum Anesthesia/Analgesia: Epidural Mode of Delivery: Delivery of timmons fetus with cephalic presentation Fetus Spontaneous vaginal delivery of head with cephalic position, occipital anterior. A blue towel was used to protect the perineum as the head crowned and delivered. The other hand was used to exert pressure on the occiput to control the delivery of the head. The perineum was pushed with a towel-draped hand as the head and mouth was delivered over the perineum. The head was allowed to rotate externally to achieve natural body posture. Examination of neck revealed nuchal cord, which was Loose umbilical cord - reduced. The shoulder was delivered by gentle downward traction applied to head and downward traction for the delivery of anterior shoulder. This was followed by upward traction with delivery of posterior shoulder and body. After the delivery of infant, bulb suction was performed from ororpharynx and nostril with removal of clear amniotic fluid. A female was delivered. The umbilical cord was double clamped, cut and the was handed off the field to the circulating nurse Placenta Placenta was delivered spontaneously while the abdominal hand lifted the uterus cephalad and other hand keeping the umbilical cord slightly taut. Laceration Laceration Repair: 1st degree perineal repair with single stitch. Right vaginal sidewall laceration repaired with single stitch. Fourth Stage Fourth stage of labor was managed by uterine massage with abdominal hand and infusion 30 units of pitocin mixed with intravenous fluid at 300 mL/hr. EBL: 300 mL Complications: None Weight: 3260 g 1 Minute 5 Minute 10 Minute Totals: 8 9 Velia Marin MD Obstetrics & Gynecology, PGY-1 05/27/24 7:15 AM Associated attestation - Rachna Ferrell MD - 05/27/2024 4:28 PM CDT I was supervising [facility] faculty present for this procedure. I was present for all ramirez portions of the procedure. I have attached an additional note if there were special circumstances during this procedure. -OBSTETRICS & GYNECOLOGY [facility] 2024-05-27 05:06:32 Name/ MRN / Age / Gender: Jhony Headley, [id number] 29 year old female BMI: Estimated body mass index is 39.21 kg/m? as calculated from the following: Height as of this encounter: 1.676 m (5' 6"). Weight as of this encounter: 110.2 kg (242 lb 14.4 oz). Allergies: Patient has no known allergies. Last Vitals: BP Readings from Last 1 Encounters: 05/27/24 118/57 Pulse Readings from Last 1 Encounters: 05/27/24 83 SpO2 Readings from Last 1 Encounters: 05/27/24 100% Date of Surgery: 05/27/2024 Surgeon: * No surgeons listed * Procedure: CENTRAL NEURAXIAL BLOCK OR Location: [place] ANESTHESIA OUT OF OR - OR LOCATION Anesthesia Preop Eval (physical exam) Anesthesia Preop: Chart Review and [id number] [facility] Communication: 29yo F 39w2d requesting JOANIE NPO Status Verified Clear Liquids: > 2 Hours Solid Food/Non-Clear Liquids: > 8 Hours PONV Risk Factors: female and non-smoker Anesthesia History Comments: H/o prev blood patch x 2 ~ 2017 Epidural: Patient Position: Sitting Prep: Betadine Monitoring: Heart rate, continuous pulse ox, heart rate / toco and NIBP Location: Lumbar (1-5) Lumbar: L4-L5 Approach: Midline Injection Technique: Catheter Needle and Epidural Catheter: Epidural Kit: BBun Needle Type: Tuohy Needle Length: 3.5 in (8.89 cm) Needle Insertion Depth: 7 Catheter Type: Multiport Catheter Size: 19 G Catheter at Skin Depth: 12 Test Dose: Lidocaine 1.5% with epinephrine 1-to-200,000 and negative Notes: Attempt by resident x1. Patient identified. Time out done. Prep x3 and drape in sterile fashion. Infiltrated skin with 1% lidocaine. Needle insertion depth at 7 cm, catheter depth at skin 12 cm. Catheter aspiration negative x3, test dose negative, sterile dressing applied. No apparent complications. (+) Hx of PDPH Previous Anesthetics/Airways Cardiovascular Negative Cardiac ROS Pulmonary Negative Pulmonary ROS (-) Asthma (-) Tobacco use Neuro/Musculoskeletal (-) CVA(-) Seizures (-) Scoliosis (-) Spinal Cord injury (+) Obesity GI/Hepatic Negative GI/Hepatic ROS (-) GERD (-) Hepatitis (-) Liver disease Hematology Comments: HGB Date Value 05/26/2024 10.7 g/dL (L) 10/30/2012 13.7 G/DL 05/26/24 0941 PLT 151* (+) Anemia (-) Coagulopathy Renal Comments: CREATININE (mg/dL) Date Value 05/26/2015 0.70 K (mmol/L) Date Value 05/26/2015 4.3 (-) Renal disease Skin (+) Current IV access Endo/Other Negative Endo/Other ROS (-) Diabetes Mellitus (-) Hyperthyroidism (-) Hypothyroidism Other (-) Tobacco use RESOLUTION REP Comments: Jhony Headley is a 29 year old at 39w1d by d/u(10) who presents for IOL. IOL - Denies ctx, vb, lof, dfm - SVE: 2/0/Floating - Contractions (number / 10 minute): irreg - Plan: Admit for IOL with FB . Antepartum course reviewed - 1 h 87, sero negative, Rnot immune, VZVimmune, HPV immune, O positive/IAT negative, GBS negative, Pap NILM 11/2023 - H/H, plt: 11.5 / 35.3, 163 on 05/07/24 - PP control plan: will discuss [facility] - Presentation on admission: cephalic - anterior placenta - EFW: 3129 g - FHT reactive and reassuring - Normal anatomy scan P: 2001 Gestational Age: 39.2 Pediatric Pediatric N/A N/A Preoperative Medication Instructions Continue taking all prescribed medications except: RANDY inhibitors, ARBs, diuretics, all oral diabetes medications Anticoagulant Therapy: Defer to surgeons Insulin: Take 1/2 dose the night prior to surgery. Hold on DOS. Phentermine: Alert [facility] anesthesiologist SGLT2 Inhibitors: "gliflozins" to be held for 3 days prior to elective surgeries GLP1 Agonosit: stop 7 days prior to surgery MAC Cases: Continue taking RANDY inhibitors and ARBs ASA Classification ASA: 2 Labs: Chemistry - CBC 05/26/2024 - - - - 8.05 10.7 (L) 151 (L) - - - 32.4 (L) eGFR: - Date: - ANC: 5.95 Date: 05/26/2024 LFTs - Coags AST: - AP: - Prot: - Ca: - PT: - Date: - ALT: - T Cecil: - Alb: - PTT: - Date: - PO4: - Date: - INR: - Date: - Cardiac Endocrine & other pBNP: - Date: - A1C: - Date: - Trop I: - Date: - POCT A1C: - Date: - CK: - Date: - TSH: - Date: - CKMB: - Date: - FT4: - Date: - LDL: - Date: - Lact: - Date: - Procal: - Date: - Respiratory -|-|-|-|- D-dimer: - ABG Date: - Date: - Miscellaneous Type and Screen: O POSITIVE Antibody: Negative Date: 05/26/2024 POCT : Positive Date: 11/22/2023 Current Medications: No outpatient medications have been marked as taking for the 05/26/24 encounter (Hospital Encounter). Previous Surgeries: No past surgical history on file. Anesthesia Physical Exam General no apparent distress and alert and oriented x 3 Neuro/Psych Dental no notable dental hx Abdominal (+) obesity and gravid Airway Mallampati score:III TM distance:> 5 cm NECK: short Neck ROM: full Mouth opening:normal (+) Normal facies Extremity Pulmonary pulmonary exam normal Other Cardiovascular cardiovascular exam normal Anesthesia Plan ASA Status: 2 Plan discussed during pre-op evaluation: General, Epidural, Spinal and CSE Anesthetic plan on DOS: Epidural Anesthesia plan discussed with: patient or dental sales representative Post-Operative Analgesia: routine analgesia & antiemetics Recovery Plan: LDR Additional comments: I reviewed the preoperative history, medications, labs and pertinent studies and performed a focused physical exam preoperatively. I discussed the anesthetic plan with the patient and/or family, including the risks, benefits, and alternatives. I answered all questions and verified consent and ID. The patient/family agrees with the plan and desires to proceed with the procedure. Jazz Brar, DO PGY-4/CA-3 Clinical Laboratory Aides Teacher AN-ANESTHESIOLOGY ANESTHESIOLOGIST [facility] 2024-05-26 19:17:53 Problem: Intrapartum process (including labor pain) Goal: Absence of or reduction of complications of labor Outcome: Progressing as expected Goal: Able to cope with pain Outcome: Progressing as expected Goal: Adequate to move to next level of care Outcome: Progressing as expected Goal: Reduction in pain sensation Outcome: Progressing as expected Problem: Falls, Risk of Goal: Absence of falls Outcome: Progressing as expected Sanam Villatoro RN [facility] 2024-05-26 09:07:43 Problem: Falls, Risk of Goal: Absence of falls Outcome: Progressing as expected Problem: Intrapartum process (including labor pain) Goal: Absence of or reduction of complications of labor Outcome: Progressing as expected Goal: Able to cope with pain Outcome: Progressing as expected Goal: Adequate to move to next level of care Outcome: Progressing as expected Goal: Reduction in pain sensation Outcome: Progressing as expected [facility] 2024-04-16 10:13:00 Regardinwks , contractions, lower abdomen pain x 1hour ----- Message from Mirian Glynn sent at 04/16/2024 10:13 AM CDT ----- Jhony Headley is a 28 year old female Natividad Niño RN [facility] 2024-04-16 10:13:00 Triage Assessment Last Clinic Visit: 04/01/24, OB, care Primary Symptom: abdominal pain Onset / Duration: 1 hr ago Location / Description: abdomen Pain / Severity: 7/10 Associated Symptoms: lower abdominal pain Fever / Method: denies Hydration: eating and drinking normally, 16.9oz bottle of water, last void 30 min ago, denies hematuria or dysuria, denies n/v/d Treatment so far: denies Effect on ADL's: some Gestational Weeks: 33w 3d Rupture Membranes: denies Bleeding / Spotting / Pads per hour: denies Movement: normal, last kick 30 min ago Para / : EDC: 06/01/24 Pre-existing condition / Immunocompromised: anemia Jhony Headley is a 28 year old female whose calling for advice with contractions. Pt reports since Sunday she has had bad heartburn and went to L&D. Reports started with abdominal pain while there. Pt reports dc home on bedrest. Pt reports 1 hr ago she started having lower abdominal pain with back pain. Pt denies rupture of membranes or vaginal bleeding. Assessment and triage completed per protocol. Patient verbalizes understanding and agrees to follow plan of care. Pt verbalized understanding of need for L&D eval and will go to [facility] L&D now as advised. Pt had no further questions or concerns. Call back advice given and pt verbalized understanding. Natividad Niño RN Reason for Disposition MODERATE-SEVERE abdominal pain (e.g., interferes with normal activities, awakens from sleep) Protocols used: - Abdominal Pain Greater Than 20 Weeks [id number] T [facility] 2024-01-19 01:01:39 Patient arrived ambulatory to ED c/o cramping that started about [address] Singer. 20week 3 days. Patient had flu shot yesterday. 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 Pt given printed and verbal discharge instructions regarding injury of right achilles an foot injury Pt verbalized understanding of instructions, pt awake alert oriented, resp reg unlabored, skin w/d, color appropriate for race, moves all ext well,pt encouraged to follow up with pcp Advised to seek medical attention for new/prolonged/worsening of symptoms No adverse reaction to meds given in ER noted upon discharge Awake, alert oriented, resp reg unlabored, skin w/d, pt leaving amb with steady gait, in no apparent distress Annabelle Car RN [facility] 2023-07-20 19:48:35 Formatting of this n ote might be different from the original. Pt arrives ambulatory to ED c/o rt foot pain 06/21 after "running over foot with a cart this morning." She states that it hurts to put pressure on the heel of her right foot. Karla Burton RN [facility] 2023-07-20 19:22:00 Formatting of this n ote is different from the original. [facility] Emergency Department Note Patient Name: Jhony Headley Date of : 1995 28 year old female Treatment Room: [place] [address]/[place] [address] Primary Care Physician: PATIENT DOES NOT HAVE A PCP Patient Escorted by: Family [5] Mode of Arrival: Personal means [1] EMS Treatment Prior to ED Arrival: [employer] [facility] CHAIR treatment: None Travel and Exposure Screening: Symptoms Does patient have any of these symptoms?: (not recorded) Exposure Screening Has patient had contact with someone with a communicable disease in the last month?: (not recorded) Diseases exposed to:: (not recorded) Is Patient ?: (not recorded) Exposure Date: (not recorded) Chief Complaint: Chief Complaint Patient presents with Foot Pain History of Present Illness: Jhony Haedley is a 28 year old female who presents to the ED for evaluation of pain to right foot X 1 day. Pt reports that she accidentally hit her right Achilles tendon region on a cart this morning. Denies any previous injury. No foot drop. Pain localized to heel on right and ankle/Achilles tendon region History provided by: Patient and medical records interpreter deaf used: No Foot Pain Location: Foot Time since incident: 1 day Injury: yes Foot location: R foot Pain details: Quality: Aching Radiates to: Does not radiate Severity: Moderate Onset quality: Sudden Duration: 1 day Timing: Intermittent Chronicity: New Dislocation: no Foreign body present: No foreign bodies Prior injury to area: No Relieved by: Nothing Worsened by: Activity, exercise, flexion, rotation and bearing weight Ineffective treatments: None tried Associated symptoms: no back pain, no decreased ROM, no fatigue, no fever, no itching, no muscle weakness, no neck pain, no numbness, no stiffness, no swelling and no tingling Risk factors: obesity Risk factors: no concern for non-accidental trauma, no frequent fractures, no known bone disorder and no recent illness Past Medical History/Immunizations: Past Medical History: Diagnosis Date Anemia of mother in , antepartum 09/25/2016 spinal headache 09/17/2018 Vaginal yeast infection 11/28/2016 Tetanus received in last 5 years: Yes Allergies: No Known Allergies Past Social History: Tobacco Use Never smoked or used smokeless tobacco. Alcohol Use No. Drug Use No. Sexual Activity Sexually active; Partners: Male; Control/Protection: Condom. Comments: last sexual intercourse: 11/06/2018 Past Surgical History: History reviewed. No pertinent surgical history. Review of Systems: Review of Systems Constitutional: Negative. Negative for fatigue and fever. HENT: Negative. Eyes: Negative. Respiratory: Negative. Breasts: Negative. Cardiovascular: Negative. Gastrointestinal: Negative. Genitourinary: Negative. Musculoskeletal: Positive for arthralgias and myalgias. Negative for back pain, gait problem, joint swelling, neck pain and stiffness. Skin: Negative. Negative for itching. Neurological: Negative. Psychiatric/Behavioral: Negative. All other systems reviewed and are negative. Endocrine: Endocrine negative Physical Exam: ED Triage Vitals [07/20/231945] Weight 104.3 kg (230 lb) Actual or estimated Estimated by patient/family report Height 1.702 m (5' 7") BP 128/56 Pulse 72 Resp 16 Temp 37 ?C (98.6 ?F) Temp source Oral SpO2 100 % Measured on Room air Physical Exam Vitals and nursing note reviewed. Constitutional: General: She is not in acute distress. Appearance: Normal appearance. She is well-developed. She is obese. She is not ill-appearing, toxic-appearing or diaphoretic. HENT: Head: Normocephalic and atraumatic. Right Ear: There is no impacted cerumen. Nose: Nose normal. No congestion or rhinorrhea. Mouth/Throat: Mouth: Mucous membranes are moist. Pharynx: Oropharynx is clear. No oropharyngeal exudate or posterior oropharyngeal erythema. Eyes: General: No scleral icterus. Right eye: No discharge. Left eye: No discharge. Extraocular Movements: Extraocular movements intact. Conjunctiva/sclera: Conjunctivae normal. Pupils: Pupils are equal, round, and reactive to light. Neck: Thyroid: No thyromegaly. Cardiovascular: Rate and Rhythm: Normal rate and regular rhythm. Pulses: Normal pulses. Heart sounds: Normal heart sounds. No murmur heard. Pulmonary: Effort: Pulmonary effort is normal. No respiratory distress. Breath sounds: Normal breath sounds. No stridor. No wheezing, rhonchi or rales. Chest: Chest wall: No tenderness. Abdominal: General: Bowel sounds are normal. There is no distension. Palpations: Abdomen is soft. Tenderness: There is no abdominal tenderness. There is no right CVA tenderness, left CVA tenderness, guarding or rebound. Musculoskeletal: General: Tenderness present. No swelling or deformity. Normal range of motion. Cervical back: Normal range of motion and neck supple. No rigidity or tenderness. Comments: + tenderness to palpation right Achilles tendon region Humphrey test negative No bruising to posterior ankle region No weakness with with ankle plantar flexion Lymphadenopathy: Cervical: No cervical adenopathy. Skin: General: Skin is warm and dry. Capillary Refill: Capillary refill takes less than 2 seconds. Coloration: Skin is not jaundiced or pale. Findings: No bruising, erythema, lesion or rash. Neurological: General: No focal deficit present. Mental Status: She is alert and oriented to person, place, and time. Mental status is at baseline. Cranial Nerves: No cranial nerve deficit. Sensory: No sensory deficit. Motor: No weakness or abnormal muscle tone. Coordination: Coordination normal. Gait: Gait normal. Deep Tendon Reflexes: Reflexes normal. Psychiatric: Mood and Affect: Mood normal. Behavior: Behavior normal. Thought Content: Thought content normal. Judgment: Judgment normal. Radiology: XR ANKLE 3+ VW RIGHT Preliminary Result EXAM: XR ANKLE 3+ VW RIGHT HISTORY: Ankle injury COMPARISON: None FINDINGS: Radiographs of the right ankle demonstrate no acute fracture or dislocation. The ankle mortise and joint spaces are maintained. No soft tissue abnormality is seen. IMPRESSION No acute fracture or dislocation. Preliminary Report Dictated by Resident: Brandt Yañez Lab Results: Lab Results POCT TEST - Normal Result Value Ref Range POCT PREG Negative On board controls acceptable with C Line Yes POCT PREG LOT # [id number] POCT PREG TEST DATE 11/14/2024 Orders and Treatments: Orders Placed This Encounter Procedures XR ANKLE 3+ VW RIGHT POCT TEST Orders Placed This Encounter Medications ibuprofen (IBU) tablet 800 mg First Provider Eval: ED Events Date/Time Event User Comments 07/20/231954 Medical Screening Begins NEAL RAMOS MD -- 07/20/231954 First Provider Evaluation NEAL RAMOS MD -- No notes of EC Admission Criteria type on file. ED COURSE Diagnosis/Impression as of 07/20/232114 Foot injury, right, initial encounter Injury of right Achilles tendon, initial encounter Procedures: Procedures MDM: Medical Decision Making Jhony Headley is a 28 year old female who presents to the ED for evaluation of right heel/ankle injury susatined earlier this morning Problems Addressed: Injury of right Achilles tendon, initial encounter: acute illness or injury Details: Xray negative for fracture Low suspicion for Achilles tendon Rupture and Humphrey test is negative Will refer to Ortho for further evaluation Advised pt regarding Achilles tendon exercises and need for flat heeled shoes Amount and/or Complexity of Data Reviewed Labs: ordered. Decision-making details documented in ED Course. Radiology: ordered and independent interpretation performed. Decision-making details documented in ED Course. Risk OTC drugs. Prescription drug management. Risk Details: Pt referred to [facility] for further eval Flowsheet Documentation: Scoring Tools: No data recorded Disposition/Condition: ED Disposition ED Disposition Disch - Home Condition Stable Comment -- Discharge Medications: Patient's Medications START taking these medications No medications on file CONTINUE taking these medications which have NOT CHANGED AMOXICILLIN 500 MG CAPSULE Take 1 capsule by mouth in the morning and 1 capsule at noon and 1 capsule in the evening. BENZONATATE 100 MG CAPSULE Take 1 capsule by mouth 3 (three) times daily as needed for Cough. IBUPROFEN 600 MG TABLET Take 1 tablet by mouth every 6 (six) hours as needed for Pain (scale 1-3) or Pain (scale 4-6) (Pain). Take with food or milk. ABCJBIZB-BTEHYAHIO-XAPWYZJ RTISONE OTIC SOLUTION Place 3 Drops in right ear 4 (four) times daily. NORGESTIMATE-ETHINYL ESTRADIOL (ORTHO TRI-CYCLEN LO, 28,) 0.18/0.215/0.25 MG-25 MCG TABLET Take 1 tablet by mouth daily. START taking Modified Medications as Prescribed No medications on file STOP taking these medications No medications on file Follow-up: Contact information for follow-up Greg Duron MD Specialty: ORT-ORTHOPAEDIC SURGERY [address] [facility] [id number] Electronically signed by: Neal Ramos MD [id number]/20/[id number] T [facility]
[2025-01-19] MEDS ORDERED: LIDOCAINE VISCOUS 2% 10ML ORAL SOLN ONE (22:52)
[2025-01-19] MEDS ORDERED: MAGNES/ALUMIN/SIMET 30ML UCUP ONE (22:52)
--- NOTE | 2025-01-19 23:13 | ER ---
Nurse's Notes [facility] Name: Rachel Headley Age: 29 yrs Sex: Female : 1995 Arrival Date: 01/19/2025 Time: 22:22 Bed IW2 Private MD: Diagnosis: Streptococcal pharyngitis Presentation: 01/19 22:45 Chief complaint: Patient states: c/o sore throat, pain to bilateral ears, body aches me1 and chills x2 days. Pain 08/21. Took ibuprofen at 21:30. Coronavirus screen: Vaccine status: Patient reports being unvaccinated. Ebola Screen: No symptoms or risks identified at this time. Initial Sepsis Screen: Does the patient meet any 2 criteria? HR > 90 bpm. Does the patient have a suspected source of infection? No. Patient's initial sepsis screen is negative. Risk Assessment: Do you want to hurt yourself or someone else? Patient reports no desire to harm self or others. Onset of symptoms was January 17, 2025. 22:45 Method Of Arrival: Ambulatory [facility] 22:45 Acuity: RAMIRO 4 me1 Triage Assessment: 22:46 General: Appears ill, well groomed, well developed, well nourished, Behavior is calm, me1 cooperative, appropriate for age. Pain: Complains of pain in throat and bilateral ears. EENT: Reports difficulty swallowing pain in left ear and right ear and throat when swallowing. Neuro: Level of Consciousness is awake, alert, obeys commands, Oriented to person, place, time, situation, Appropriate for age. Cardiovascular: Patient's skin is warm and dry. Respiratory: Airway is patent Respiratory effort is even, unlabored, Respiratory pattern is regular, symmetrical. GI: No signs and/or symptoms were reported involving the gastrointestinal system. : No signs and/or symptoms were reported regarding the genitourinary system. Derm: Skin is intact, is healthy with good turgor, Skin is pink, warm \T\ dry. Musculoskeletal: No signs and/or symptoms reported regarding the musculoskeletal system. 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 - Infectious Disease History:: Denies. - Social history:: Smoking status: Patient denies any tobacco usage or history of. Screenin:46 [facility] ED Fall Risk Assessment (Adult) History of falling in the last 3 months, me1 including since admission No falls in past 3 months (0 pts) Confusion or Disorientation No (0 pts) Intoxicated or Sedated No (0 pts) Impaired Gait No (0 pts) Mobility Assist Device Used No (0 pt) Altered Elimination No (0 pt) Score/Fall Risk Level 0 - 2 = Low Risk Maintained a safe environment, Provided non-skid footwear, Hourly rounding (assess needs \T\ fall precautionary measures) done. Abuse screen: Denies threats or abuse. Nutritional screening: No deficits noted. Tuberculosis screening: No symptoms or risk factors identified. Assessment: 22:46 General: See triage assessment. Respiratory: Airway is patent Respiratory effort is me1 even, unlabored, Respiratory pattern is regular, symmetrical, Breath sounds are clear bilaterally. 23:30 EENT: Throat is reddened. me1 Vital Signs: 22:45 BP 139 / 83; Pulse 102; Resp 19; Temp 99.1; Pulse Ox 100% ; Weight 104.33 kg; Height 5 me1 ft. 6 in. ; Pain 10/10; 22:45 Body Mass Index 37.12 (104.33 kg, 167.64 cm) me1 22:45 Pain Scale: Adult id1 ED Course: 22:34 Patient arrived in ED. kb 22:34 [facility]ib[facility] Paulson [facility]C [facility] kb 22:34 Jose Nevarez MD is Attending Physician. kb 22:46 Triage completed. me1 22:46 Arm band placed on Patient placed in waiting room. me1 22:46 Patient has correct armband on for positive identification. Bed in low position. Call [facility] light in reach. Side rails up X 1. Provided Education on: POC. Verbalized understanding.. Client placed on continuous cardiac and pulse oximetry monitoring. NIBP monitoring applied. Pulse ox on. NIBP on. 22:46 No provider procedures requiring assistance completed. Patient did not have IV access [facility] during this emergency room visit. 22:53 Strep swab sent to lab. me1 23:24 Garima Davey, RN is Primary Nurse. me1 Administered Medications: 22:52 Drug: GI Cocktail without - (Maalox PO 30 ml, Lidocaine Mucous Membrane 2 % 15 me1 ml) PO once Route: PO; 23:24 Follow up: Response: No adverse reaction; Pain is decreased me1 23:28 Drug: Amoxicillin-Clavulanate PO 875 mg PO once Route: PO; me1 23:29 Follow up: Response: No adverse reaction me1 Medication: 22:46 VIS not applicable for this client. me1 Outcome: 23:12 Discharge ordered by . edith 23:30 Discharged to home ambulatory, with friend, me1 23:30 Condition: stable 23:30 Discharge instructions given to patient, friend, Instructed on discharge instructions, follow up and referral plans. medication usage, Demonstrated understanding of instructions, follow-up care, medications, Prescriptions given X 1, 23:31 Patient left the ED. me1 Signatures: Vibha Paulson, CASE REVIEWER-C CASE REVIEWER-Ckb Garima Davey, RN RN me1
--- NOTE | 2025-01-19 23:13 | EDPHYS ---
Physician Documentation [facility] Name: Rachel Headley Age: 29 yrs Sex: Female : 1995 Arrival Date: 01/19/2025 Time: 22:22 Bed IW2 Private MD: ED Physician Jose Nevarez HPI: 01/19 22:56 This 29 yrs old Female presents to ER via Ambulatory with complaints of Sore kb Throat. 22:56 Pt is a 29 year old female who presents for sore throat and bilateral ear pain for 2 kb days. Denies cough, congestion, runny nose. 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 - Infectious Disease History:: Denies. - Social history:: Smoking status: Patient denies any tobacco usage or history of. ROS: 22:55 Constitutional: As per HPI kb Exam: 22:55 Constitutional: This is a well developed, well nourished patient who is awake, alert, kb and in no acute distress. Head/Face: Normocephalic, atraumatic. Cardiovascular: Regular rate Respiratory: Respirations even and unlabored. No increased work of breathing. Talking in full sentences Skin: Warm, dry with normal turgor. Normal color. MS/ Extremity: Pulses equal, no cyanosis. Neurovascular intact. Full, normal range of motion. Neuro: Awake and alert, GCS 15, oriented to person, place, time, and situation. 22:55 ENT: External ear(s): are unremarkable, Ear canal(s): are normal, TM's: are normal, Posterior pharynx: Airway: normal, no evidence of obstruction, Tonsils: bilaterally enlarged, with erythema, Uvula: normal, midline, Vital Signs: 22:45 BP 139 / 83; Pulse 102; Resp 19; Temp 99.1; Pulse Ox 100% ; Weight 104.33 kg; Height 5 me1 ft. 6 in. ; Pain 10/10; 22:45 Body Mass Index 37.12 (104.33 kg, 167.64 cm) me1 22:45 Pain Scale: Adult me1 MDM: 22:34 Medical Screening Exam initiated kb 22:56 Differential diagnosis: pharyngitis, strep, tonsillitis. Data reviewed: vital signs, kb nurses notes. 23:12 Counseling: I had a detailed discussion with the patient and/or guardian regarding the kb historical points, exam findings, and any diagnostic results supporting the discharge/admit diagnosis, lab results, the need for outpatient follow up, a family practitioner, to return to the emergency department if symptoms worsen or persist or if there are any questions or concerns that arise at home. 01/19 22:46 Order name: Group A Streptococcus Rapid; Complete Time: 23:12 kb Administered Medications: 22:52 Drug: GI Cocktail without - (Maalox PO 30 ml, Lidocaine Mucous Membrane 2 % 15 me1 ml) PO once Route: PO; 23:24 Follow up: Response: No adverse reaction; Pain is decreased me1 23:28 Drug: Amoxicillin-Clavulanate PO 875 mg PO once Route: PO; me1 23:29 Follow up: Response: No adverse reaction me1 Disposition: 01/20 00:31 Co-signature as Attending Physician, Jose Nevarez MD I reviewed the patient's care rt provided by the Advanced Practice Provider and agree with the diagnosis and treatment plan. Disposition Summary: 01/19/25 23:12 Discharge Ordered Notes: Location: Home kb Condition: Stable kb Diagnosis - Streptococcal pharyngitis kb Followup: kb - With: Private Physician - When: 2 - 3 days - Reason: Recheck today's complaints, Continuance of care, Re-evaluation by your physician Followup: kb - With: Emergency Department - When: As needed - Reason: Worsening of condition Discharge Instructions: - Discharge Summary Sheet kb - Strep Throat, Adult, [id number] kb Forms: - Medication Reconciliation Form kb - Antibiotic Education kb - Prescription Opioid Use kb - Patient Portal Instructions kb - Leadership Thank You Letter kb Prescriptions: - Augmentin 875-125 mg Oral Tablet - take 1 tablet ORAL route every 12 hours for 10 days; 20 tablet; Refills: 0, kb Product Selection Permitted Signatures: Dispatcher [employer] Vibha Johns, CAITLIN-C FIBERGLASS PRODUCT TESTER-Jose France MD MD rt Eddleman, Garima, RN RN me1
[2025-01-19] MEDS ORDERED: AMOX/K CLAV 875 MG TAB ONE (23:25)
[2025-01-20 00:18] VITALS: BP 139/83; TEMP 99.1; O2SAT 100
== END 2025-01-19 23:31 | disposition home or self-care (01) ==
LOC: ER 22:22
DX: J02.0 Streptococcal pharyngitis (principal)
CPT/HCPCS: 36415; 99284